=== PATIENT | female | born 1945 | race Caucasian/White ===

== ENCOUNTER 2017-06-30 04:03 | Emergency (ER) | payer OTHER ==
[2017-06-30 04:29] VITALS: BP 184/94; PULSE 73; TEMP 98.3; BMI 30.5
[2017-06-30] MEDS ORDERED: IBUPROFEN 400 MG TABLET (FP) PO ONE (04:49)
[2017-06-30] MEDS ORDERED: METHOCARBAMOL 500 MG TABLET PO ONE (04:49)
--- NOTE | 2017-06-30 04:50 | PDOC ---
History of Present Illness - General History Source: Patient Exam Limitations: No Limitations - History of Present Illness Initial Comments: The patient is a 71 yo F with a past medical history significant for HTN, HLD, CAD and DM who presents with lower back pain radiating to L groin and L knee for 1 week. Began when she danced for the first time in 4 years. She describes the pain as an intermittent pressure. She notes she took oxycodone with no relief. The patient states the pain is worsened by lying flat and mildly alleviated by heat and ice. The patient denies numbness and tingling. The patient denies fevers, chills and cough. She denies chest pain, palpitations and lightheadedness. <Enedelia Strong - Last Filed: 06/30/17 05:01> - General History Source: Patient <PranavCorby espinoza - Last Filed: 06/30/17 05:06> - General Chief Complaint: Back Pain Stated Complaint: PAIN IN GROIN AREA Time Seen by Provider: 06/30/17 04:22 Past History <Enedelia Strong - Last Filed: 06/30/17 05:01> - Past Medical History Anemia: No Asthma: No Cancer: No Cardiac Disorders: Yes (CAD) CVA: No COPD: No CHF: No Dementia: No Diabetes: Yes GI Disorders: Yes (C DIFF) Disorders: No HTN: Yes Hypercholesterolemia: Yes Liver Disease: No Seizures: No Thyroid Disease: No - Surgical History Abdominal Surgery: No Appendectomy: No Cardiac Surgery: Yes (STENT X 1 2000, angioplasty) Cholecystectomy: Yes (09/2011) Lung Surgery: No Orthopedic Surgery: No - Immunization History Immunization Up to Date: Yes - Psycho/Social/Smoking Cessation Hx Anxiety: No Suicidal Ideation: No Smoking Status: No Smoking History: Never smoked Have you smoked in the past 12 months: No Number of Cigarettes Smoked Daily: 0 If you are a former smoker, when did you quit?: 40 YRS AGO Information on smoking cessation initiated: No 'Breaking Loose' booklet given: 06/14/14 Hx Alcohol Use: No Drug/Substance Use Hx: No Substance Use Type: None Hx Substance Use Treatment: No <Corby Smith - Last Filed: 06/30/17 05:06> - Past Medical History Allergies/Adverse Reactions: Allergies Allergy/AdvReac Type Severity Reaction Status Date / Time Dcrpxfo-Gep-Lsg Reductase Allergy Verified 06/30/17 04:27 Inhibitor Home Medications: Ambulatory Orders Alprazolam [Xanax -] 0.5 mg PO Q8H PRN 05/07/13 Aspirin 81 mg PO DAILY 05/07/13 Winfield-3 Acid Ethyl Esters [Lovaza -] 2 tab PO BID 05/07/13 Ubidecarenone [Co Q-10] 200 mg PO DAILY 05/07/13 Vitamin B Complex 1 each PO DAILY 05/07/13 Vitamin E 400 unit PO DAILY 05/07/13 Ezetimibe [Zetia] 10 mg PO DAILY 02/27/14 Garlic Extract [Garlipure] 2 tab PO DAILY 02/27/14 Nebivolol HCl [Bystolic] 20 mg PO DAILY 06/14/14 Ascorbate Calcium/Bioflavonoid [Jennie-C 1,000 mg Tablet] 1 each PO DAILY Candesartan Cilexetil [Atacand -] 32 mg PO DAILY 10/22/15 Cholecalciferol (Vitamin D3) [Vitamin D] 500 unit PO DAILY 10/22/15 Glipizide [Glucotrol Xl] 10 mg PO DAILY 10/22/15 Hydrochlorothiazide [Hctz -] 25 mg PO DAILY 10/22/15 Magnesium Amino Acid Chelate [Magnesium] 100 mg PO DAILY 10/22/15 Potassium 99 mg PO DAILY 10/22/15 Oxycodone HCl/Acetaminophen [Percocet 5-325 mg Tablet] 1 tab PO Q6H PRN #60 tablet 10/23/15 Cyclosporine [Restasis] 1 each OP BID 09/05/16 Metformin HCl [Metformin HCl ER] 1,000 mg PO HS 09/05/16 Metronidazole 500 mg PO BID 09/05/16 Olopatadine HCl [Pataday] 2.5 ml OP BID 09/05/16 Timolol 0.25% [Timoptic 0.25%] 5 ml OD 09/05/16 Tobramycin Sulf/Dexamethasone [Tobradex *Eye Ointment*] 1 applic QID 09/05/16 Ibuprofen 800 mg PO TID #30 tablet 06/30/17 Methocarbamol [Robaxin -] 100 mg PO TID #90 tablet 06/30/17 Review of Systems - Review of Systems Able to Perform ROS?: Yes Comments:: CONSTITUTIONAL: Absent: fever, no chills, no fatigue EYES: Absent: visual changes ENT: Absent: ear pain, no sore throat CARDIOVASCULAR: Absent: chest pain, no palpitations RESPIRATORY: Absent: cough, no SOB GI: Absent: abdominal pain, no nausea, no vomiting, no constipation, no diarrhea GENITOURINARY: Absent: dysuria, no frequency, no hematuria MUSKULOSKELETAL: +left back, groin and hip pain SKIN: Absent: rash <Enedelia Strong - Last Filed: 06/30/17 05:01> *Physical Exam - Vital Signs Last Vital Signs Temp Pulse Resp BP Pulse Ox 98.3 F 73 18 184/94 98 06/30/17 04:27 06/30/17 04:27 06/30/17 04:27 06/30/17 04:27 06/30/17 04:27 - Physical Exam Comments: GENERAL: Well-appearing, well-nourished. No apparent distress. HEENT: Normocephalic, atraumatic. PERRL, EOM intact. CARDIOVASCULAR: Normal S1, S2. Regular rate and rhythm. PULMONARY: Clear to auscultation bilaterally. ABDOMEN: Soft, non-distended, non-tender. EXTREMITIES: Normal ROM in all four extremities. No gross deformities. tenderness to palpation lower back and si joint on L side, negative straight leg test. SKIN: Warm, dry. No rash NEUROLOGICAL: No focal neurological deficits. <Enedelia Strong - Last Filed: 06/30/17 05:01> - Vital Signs Last Vital Signs Temp Pulse Resp BP Pulse Ox 98.3 F 73 18 184/94 98 06/30/17 04:27 06/30/17 04:27 06/30/17 04:27 06/30/17 04:27 06/30/17 04:27 <Corby Smith - Last Filed: 06/30/17 05:06> Medical Decision Making - Medical Decision Making 06/30/17 05:06 Dr. Smith: The scribe's documentation has been prepared under my direction and personally reviewed by me in its entirery. I confirm that the note above accurately reflects all work, treatment, procedures, and medical decision making performed by me. <Corby Smith - Last Filed: 06/30/17 05:06> *DC/Admit/Observation/Transfer - Attestations Scribe Attestion: Documentation prepared by Enedelia Strong, acting as territory sales manager medical for Corby Smith MD/DO. <Enedelia Strong - Last Filed: 06/30/17 05:01> - Discharge Dispostion Admit: No <Corby Smith - Last Filed: 06/30/17 05:06> Diagnosis at time of Disposition: Low back pain - Discharge Dispostion Disposition: HOME Condition at time of disposition: Stable - Prescriptions Prescriptions: Ibuprofen 800 mg PO TID #30 tablet Methocarbamol [Robaxin -] 100 mg PO TID #90 tablet - Referrals Referrals: Steve Riley [Primary Care Provider] - Sushil Foster MD [Staff Physician] - - Patient Instructions Printed Discharge Instructions: DI for Low Back Pain
[2017-06-30] MEDS ORDERED: KETOROLAC TROMETHAMINE 60 MG/2 ML VIAL IM ONE (04:58)
[2017-06-30] MEDS ORDERED: KETOROLAC TROMETHAMINE 60 MG/2 ML VIAL ONE (05:24)
[2017-06-30] MEDS ORDERED: METHOCARBAMOL 500 MG TABLET ONE (05:24)
== END 2017-06-30 05:43 | disposition home or self-care (01) ==
LOC: JER 04:03
PROC: 3E0133Z Introduction of Anti-inflammatory into Subcutaneous Tissue, Percutaneous Approach (ICD-10-PCS; principal; 2017-06-30)
DX: M54.5 Low back pain (principal); I10 Essential (primary) hypertension; I25.10 Atherosclerotic heart disease of native coronary artery without angina pectoris; E78.5 Hyperlipidemia, unspecified; E11.9 Type 2 diabetes mellitus without complications; Z95.5 Presence of coronary angioplasty implant and graft; Z88.8 Allergy status to other drugs, medicaments and biological substances; Z79.82 Long term (current) use of aspirin; Z79.84 Long term (current) use of oral hypoglycemic drugs
CPT/HCPCS: 99282-25

== ENCOUNTER 2017-11-02 03:05 | Inpatient (IN) | payer OTHER ==
--- NOTE | 2017-11-02 03:33 | PDOC ---
Attending Attestation - HPI HPI: 11/02/17 03:33 The patient is a 72 year old female, with a significant past medical history of HTN, hypercholesterolemia, diabetes, CAD, acid reflux, chronic lower back pain, and arthritis, who presents to the emergency department with sudden onset of substernal chest pain radiating to the left collar bone while awake and resting. She states the pain started as 5/10, however, increased to 10/10. She reports similar episodes twice in the past 2 weeks which she drank water, took a baby aspirin, and took xanax with significant relief of her pain at the time. She reportedly did the same today, but denies improvement of her pain. She states taking deep breaths and holding her breath alleviates her chest pain. As per ems, the patients BP was 200/176 which dropped to 161/?? after being given a sublingual nitro in route. EMS also reportedly gave three 81 mg aspirins in route. The patient states she has an appointment on 11/06/17, with her PCP. She denies shortness of breath, headache and dizziness. She denies fever, chills , nausea, vomit, diarrhea and constipation. She denies dysuria, frequency, urgency and hematuria. Allergies: Sgzanjy-Oox-Svy Reductase Inhibitor Social History: Former smoker (quit ~20 years ago; 1 pack/day). PCP: Dr.Oliver Osvaldo Damon [phone] - Medical Decision Making 11/02/17 03:34 Documentation prepared by Ximena Diaz, acting as medical records auditor for Corby Smith DO <Ximena Diaz - Last Filed: 11/02/17 03:33> - Resident Resident Name: Lorenza Junior - ED Attending Attestation I have performed the following: I have examined & evaluated the patient, The case was reviewed & discussed with the resident, I agree w/resident's findings & plan, Exceptions are as noted - HPI HPI: 11/02/17 05:40 Physical Exam General Appearance: Yes: Appropriately Dressed. No: Apparent Distress, Intoxicated HEENT: positive: EOMI, DELISA, Normal ENT Inspection, Normal Voice, TMs Normal, Pharynx Normal. negative: Pale Conjunctivae, Photophobia, Scleral Icterus (R), Scleral Icterus (L) Neck: positive: Trachea midline, Normal Thyroid, Supple. negative: Tender, Rigid, Carotid bruit, Stridor, Lymphadenopathy (R), Lymphadenopathy (L), Thyromegaly Respiratory/Chest: positive: Lungs Clear, Normal Breath Sounds. negative: Chest Tender, Respiratory Distress, Accessory Muscle Use, Labored Respiration, RES, Crackles, Rales, Rhonchi, Stridor, Wheezing, Dullness Cardiovascular: positive: Regular Rhythm, Regular Rate, S1, S2. negative: Edema , JVD, Murmur, Bradycardia, Tachycardia Vascular Pulses: Dorsalis-Pedis (R): 2+, Doralis-Pedis (L): 2+ Gastrointestinal/Abdominal: positive: Normal Bowel Sounds, Flat, Soft. negative : Tender, Organomegaly, Pulsatile Mass, Increased Bowel Sounds, Decreased BS, Distended, Guarding, Rebound, Hernia, Hepatomegaly, Spleenomegaly Lymphatic: negative: Adenopathy, Tenderness Musculoskeletal: positive: Normal Inspection. negative: CVA Tenderness, Decreased Range of Motion Extremity: positive: Normal Capillary Refill, Normal Inspection, Normal Range of Motion, Pelvis Stable. negative: Tender, Pedal Edema, Swelling, Erythema Integumentary: positive: Normal Color, Dry, Warm. negative: Cyanotic, Erythema , Jaundice, Rash Neurologic: positive: cold roll inspector II-XII NML intact, Fully Oriented, Alert, Normal Mood/ Affect, Motor Strength 5/5. negative: EOM Palsy, Facial Droop, Sensory Deficit - Physicial Exam PE: 11/02/17 19:39 *Physical Exam General Appearance: Yes: Appropriately Dressed. No: Apparent Distress, Intoxicated HEENT: positive: EOMI, DELISA, Normal ENT Inspection, Normal Voice, TMs Normal, Pharynx Normal. negative: Pale Conjunctivae, Photophobia, Scleral Icterus (R), Scleral Icterus (L) Neck: positive: Trachea midline, Normal Thyroid, Supple. negative: Tender, Rigid, Carotid bruit, Stridor, Lymphadenopathy (R), Lymphadenopathy (L), Thyromegaly Respiratory/Chest: positive: Lungs Clear, Normal Breath Sounds. negative: Chest Tender, Respiratory Distress, Accessory Muscle Use, Labored Respiration, RES, Crackles, Rales, Rhonchi, Stridor, Wheezing, Dullness Cardiovascular: positive: Regular Rhythm, Regular Rate, S1, S2. negative: Edema , JVD, Murmur, Bradycardia, Tachycardia Vascular Pulses: Dorsalis-Pedis (R): 2+, Doralis-Pedis (L): 2+ Gastrointestinal/Abdominal: positive: Normal Bowel Sounds, Flat, Soft. negative : Tender, Organomegaly, Pulsatile Mass, Increased Bowel Sounds, Decreased BS, Distended, Guarding, Rebound, Hernia, Hepatomegaly, Spleenomegaly Lymphatic: negative: Adenopathy, Tenderness Musculoskeletal: positive: Normal Inspection. negative: CVA Tenderness, Decreased Range of Motion Extremity: positive: Normal Capillary Refill, Normal Inspection, Normal Range of Motion, Pelvis Stable. negative: Tender, Pedal Edema, Swelling, Erythema Integumentary: positive: Normal Color, Dry, Warm. negative: Cyanotic, Erythema , Jaundice, Rash Neurologic: positive: cold roll inspector II-XII NML intact, Fully Oriented, Alert, Normal Mood/ Affect, Motor Strength 5/5. negative: EOM Palsy, Facial Droop, Sensory Deficit - Medical Decision Making 11/02/17 05:41 Pt admitted to [facility] for for further evaluation <Corby Smith - Last Filed: 11/02/17 19:40> Heart Score/ECG Review - ECG Intrepretation Comment:: 11/02/17 03:34 EKG was read by Dr. Smith at 03:09 Impression: normal sinus rhythm with sinus arrhythmia. Septal infarct, age undetermined. Vent Rate: 66 bpm [place] Interval: 154 ms QTc: 419 ms Documentation prepared by Ximena Diaz, acting as medical records auditor for Corby Smith DO <Ximena Diaz - Last Filed: 11/02/17 03:33>
--- NOTE | 2017-11-02 03:35 | PDOC ---
History of Present Illness - General Stated Complaint: CHEST PAIN Time Seen by Provider: 11/02/17 03:14 History Source: Patient - History of Present Illness Initial Comments: 11/02/17 03:46 72yo woman with PMH of CAD (s/p 1 stent, 2000), HTN, IDDM, and anxiety who presents with substernal chest pain radiating to both clavicles that started at approximately 1:50am. She was at rest when the pain started, which was pressure like in quality, 10/10 at its peak, now 5/10 in severity. She reports having two similar episodes in the past weeks, which both subsided within 20minutes after taking a Xanax and drinking some water. For this episode she also took a Xanax, but when the pain did not subside she took a ASA 81mg and called EMS. EMS on arrival found her to be hypertensive to 200/176 and gave her an additional 3x ASA 81 and 1x dose SL nitroglycerin. 11/02/17 07:17 Past History - Past Medical History Allergies/Adverse Reactions: Allergies Allergy/AdvReac Type Severity Reaction Status Date / Time Yvrmyfn-Wpd-Jdl Reductase Allergy Verified 11/02/17 03:23 Inhibitor Home Medications: Ambulatory Orders Alprazolam [Xanax -] 0.5 mg PO Q8H PRN 05/07/13 Aspirin 81 mg PO DAILY 05/07/13 Ubidecarenone [Co Q-10] 200 mg PO DAILY 05/07/13 Vitamin B Complex 1 each PO DAILY 05/07/13 Vitamin E 400 unit PO DAILY 05/07/13 Cholecalciferol (Vitamin D3) [Vitamin D] 500 unit PO DAILY 10/22/15 Hydrochlorothiazide [Hctz -] 12.5 mg PO DAILY 10/22/15 Potassium 99 mg PO DAILY 10/22/15 Cyclosporine [Restasis] 1 each OP BID 09/05/16 Olopatadine HCl [Pataday] 2.5 ml OP BID 09/05/16 Timolol 0.25% [Timoptic 0.25%] 5 ml OD DAILY 09/05/16 Candesartan Cilexetil [Atacand -] 32 mg PO DAILY 11/02/17 Insulin Glargine,Hum.rec.anlog [Lantus (nf)] 0 units SQ HS 11/02/17 Anemia: No Asthma: No Cancer: No Cardiac Disorders: Yes (CAD) CVA: No COPD: No CHF: No Dementia: No Diabetes: Yes GI Disorders: Yes (C DIFF) Disorders: No HTN: Yes Hypercholesterolemia: Yes Liver Disease: No Seizures: No Thyroid Disease: No - Surgical History Abdominal Surgery: No Appendectomy: No Cardiac Surgery: Yes (STENT X 1 2000, angioplasty) Cholecystectomy: Yes (09/2011) Lung Surgery: No Orthopedic Surgery: No - Immunization History Immunization Up to Date: Yes - Suicide/Smoking/Psychosocial Hx Smoking Status: No Smoking History: Never smoked Have you smoked in the past 12 months: No Number of Cigarettes Smoked Daily: 0 If you are a former smoker, when did you quit?: 40 YRS AGO 'Breaking Loose' booklet given: 06/14/14 Hx Alcohol Use: No Drug/Substance Use Hx: No Substance Use Type: None Hx Substance Use Treatment: No Review of Systems - Review of Systems Constitutional: Yes: Diaphoresis Respiratory: Yes: Other (2 lung nodules identified on CT) ABD/GI: Yes: Diarrhea Endocrine: Yes: Other (thyroid nodules found on CT) *Physical Exam - Physical Exam General Appearance: Yes: Nourished, Appropriately Dressed HEENT: positive: Normal ENT Inspection Neck: positive: Supple. negative: Thyromegaly Respiratory/Chest: positive: Chest Tender, Lungs Clear, Normal Breath Sounds Cardiovascular: positive: Regular Rhythm, Regular Rate, S1, S2 Gastrointestinal/Abdominal: positive: Normal Bowel Sounds, Soft, Protuberent. negative: Distended, Guarding Extremity: positive: Normal Inspection. negative: Pedal Edema Neurologic: positive: Fully Oriented, Alert, Normal Mood/Affect ED Treatment Course - LABORATORY CBC & Chemistry Diagram: 11/02/17 03:45 11/02/17 03:50 Medical Decision Making - Medical Decision Making 11/02/17 04:08 72yo woman with PMH of CAD (1x stent), HTN, IDDM, and anxiety who presents with substernal chest pain radiating to her clavicles. Will do work-up to r/o ACS. -CMP, CBC, BNP, Troponin -EKG -CXR 11/02/17 07:19 Troponin is elevated 0.25. Will initiate admission from Hospitalists. *DC/Admit/Observation/Transfer Diagnosis at time of Disposition: Elevated troponin - Discharge Dispostion Condition at time of disposition: Stable Admit: Yes - Referrals - Patient Instructions - Post Discharge Activity
[2017-11-02 04:05] LABS: BASOPHIL 0.6 % (0-2.0); EOSINOPHIL 1.3 % (0-4.5); MCH 31.3 pg (25.7-33.7); MCHC 33.3 g/dl (32.0-36.0); NEUTROPHILS 62.4 % (42.8-82.8); PLATELET COUNT 201 K/MM3 (134-434); WHITE BLOOD COUNT 11.2 K/mm3 (4.0-10.0)
[2017-11-02 04:27] LABS: ALBUMIN 3.3 g/dl (3.4-5.0); ANION GAP 11 (8-16); BILIRUBIN,TOTAL 0.4 mg/dL (0.2-1.0); CALCIUM 8.8 mg/dL (8.5-10.1); CO2 28 mmol/L (21-32); CREATININE 0.8 mg/dL (0.55-1.02); GLUCOSE,RANDOM 125 mg/dL (74-106); SGOT/AST 24 U/L (15-37); SGPT/ALT 29 U/L (12-78); TOT PROT 6.9 g/dl (6.4-8.2)
[2017-11-02 04:30] LABS: ALK PHOS 90 U/L (45-117); TROPONIN I 0.25 ng/ml (0.00-0.05)
[2017-11-02] MEDS ORDERED: morphine SULFATE 4 MG/ML VIAL IVPUSH PRN (04:50)
[2017-11-02 04:53] VITALS: BMI 28.0
[2017-11-02] MEDS ORDERED: ALPRAZolam 0.25 MG TABLET PO PRN (04:57)
[2017-11-02] MEDS ORDERED: HEPARIN NA (PORCINE) 5,000 UNITS/ML 1ML VIAL IVPUSH PRN ×2 (05:51)
[2017-11-02] MEDS ORDERED: HEPARIN - 25,000 UNIT in SODIUM CHLORIDE 495 ML IV SCH (06:00)
[2017-11-02] MEDS ORDERED: HEPARIN NA (PORCINE) 5,000 UNITS/ML 1ML VIAL SQ SCH (06:00)
--- NOTE | 2017-11-02 06:00 | HP ---
<Ady Petersen - Last Filed: 11/02/17 05:33> CHIEF COMPLAINT: Chest Pain PCP: Unknown HISTORY OF PRESENT ILLNESS: 72 yo F with pmh of CAD (S/p 1 stent placed in 2000), HTN, NIDDM, and anxiety presents with substernal chest pain that began at 0145 this morning. Patient states she was at rest in bed when she began having 10/10, pressure like pain radiating to her neck and clavicles. Pain lasted for 3 hours until she came to the ED. Patient endorses nausea, diarrhea, diaphoresis, and burning epigastric pain. Patient reports 2 prior episodes in the past few weeks similar to this one but those resolved after deep breathing and xanax. ER course was notable for: (1) BP- 200/176, Trop 0.25, BNP-870 (2) 3 asa 81 mg, 1 SL nitro, EKG- NSR, St depressions in V4-V6. qtc 419 (3) CXR- unremarkable Recent Travel: denies PAST MEDICAL HISTORY: as per hpi PAST SURGICAL HISTORY: cardiac angio Social History: Smoking: denies Alcohol: denies Drugs: denies Family History: Allergies Rfzadex-Kia-Tve Reductase Inhibitor Allergy (Verified 11/02/17 03:23) "SEVERE MUSCLE WEAKNESS" HOME MEDICATIONS: Home Medications Medication Instructions Recorded Alprazolam [Xanax -] 0.5 mg PO Q8H PRN 05/07/13 Aspirin 81 mg PO DAILY 05/07/13 Ubidecarenone [Co Q-10] 200 mg PO DAILY 05/07/13 Vitamin B Complex 1 each PO DAILY 05/07/13 Vitamin E 400 unit PO DAILY 05/07/13 Cholecalciferol (Vitamin D3) 500 unit PO DAILY 10/22/15 [Vitamin D] Hydrochlorothiazide [Hctz -] 12.5 mg PO DAILY 10/22/15 Potassium 99 mg PO DAILY 10/22/15 Cyclosporine [Restasis] 1 each OP BID 09/05/16 Olopatadine HCl [Pataday] 2.5 ml OP BID 09/05/16 Timolol 0.25% [Timoptic 0.25%] 5 ml OD DAILY 09/05/16 Candesartan Cilexetil [Atacand -] 32 mg PO DAILY 11/02/17 Insulin Glargine,Hum.rec.anlog 0 units SQ HS 12/14/17 [Lantus (nf)] REVIEW OF SYSTEMS CONSTITUTIONAL: Absent: fever, chills, diaphoresis, generalized weakness, malaise, loss of appetite, weight change HEENT: Absent: rhinorrhea, nasal congestion, throat pain, throat swelling, difficulty swallowing, mouth swelling, ear pain, eye pain, visual changes CARDIOVASCULAR: Absent: chest pain, syncope, palpitations, irregular heart rate, lightheadedness , peripheral edema RESPIRATORY: Absent: cough, shortness of breath, dyspnea with exertion, orthopnea, wheezing, stridor, hemoptysis GASTROINTESTINAL: Absent: abdominal pain, abdominal distension, nausea, vomiting, diarrhea, constipation, melena, hematochezia GENITOURINARY: Absent: dysuria, frequency, urgency, hesitancy, hematuria, flank pain, genital pain MUSCULOSKELETAL: Absent: myalgia, arthralgia, joint swelling, back pain, neck pain SKIN: Absent: rash, itching, pallor HEMATOLOGIC/IMMUNOLOGIC: Absent: easy bleeding, easy bruising, lymphadenopathy, frequent infections ENDOCRINE: Absent: unexplained weight gain, unexplained weight loss, heat intolerance, cold intolerance NEUROLOGIC: Absent: headache, focal weakness or paresthesias, dizziness, unsteady gait, seizure, mental status changes, bladder or bowel incontinence PSYCHIATRIC: Absent: anxiety, depression, suicidal or homicidal ideation, hallucinations. PHYSICAL EXAMINATION Vital Signs - 24 hr 11/02/17 11/02/17 03:23 03:52 Temperature 97.6 F Pulse Rate 76 Respiratory 20 Rate Blood Pressure 161/76 O2 Sat by Pulse 99 96 Oximetry (%) GENERAL: Awake, alert, and fully oriented, in no acute distress. HEAD: Normal with no signs of trauma. EYES: Extraocular movements intact, sclera anicteric, conjunctiva clear. No lid lag. EARS, NOSE, THROAT: Oropharynx clear without exudates. Moist mucous membranes. NECK: Normal range of motion, supple without lymphadenopathy, JVD, or masses. LUNGS: Breath sounds equal, clear to auscultation bilaterally. No wheezes, and no crackles. No accessory muscle use. HEART: Regular rate and rhythm, normal S1 and S2 without murmur, rub or gallop. ABDOMEN: Soft, +mild epigastric tenderness, not distended, normoactive bowel sounds, no guarding, no rebound, no masses. No hepatomegaly or splenomegaly. MUSCULOSKELETAL: Normal range of motion at all joints. No bony deformities or tenderness. No CVA tenderness. UPPER EXTREMITIES: 2+ pulses, warm, well-perfused. No cyanosis. No clubbing. No peripheral edema. LOWER EXTREMITIES: 2+ pulses, warm, well-perfused. No calf tenderness. No peripheral edema. NEUROLOGICAL: Cranial nerves II-XII intact. Normal speech. PSYCHIATRIC: Cooperative. Good eye contact. Appropriate mood and affect. SKIN: Warm, dry, normal turgor, no rashes or lesions noted, normal capillary refill. Laboratory Results - last 24 hr 11/02/17 11/02/17 11/02/17 03:45 03:50 03:50 WBC 11.2 H RBC 4.43 Hgb 13.9 Hct 41.7 MCV 94.0 MCH 31.3 MCHC 33.3 RDW 13.0 Plt Count 201 MPV 10.0 Neutrophils % 62.4 Lymphocytes % 28.1 D Monocytes % 7.6 Eosinophils % 1.3 Basophils % 0.6 Sodium 140 Potassium 4.3 Chloride 101 Carbon Dioxide 28 Anion Gap 11 BUN 28 H D Creatinine 0.8 Creat Clearance w eGFR > 60 Random Glucose 125 H D Calcium 8.8 Total Bilirubin 0.4 D AST 24 D ALT 29 D Alkaline Phosphatase 90 Troponin I 0.25 H B-Natriuretic Peptide 870.71 H Total Protein 6.9 Albumin 3.3 L D ASSESSMENT/PLAN: 72 yo F with pmh of CAD (S/p 1 stent placed in 2000), HTN, NIDDM, and anxiety presents with substernal chest pain admitted for NSTEMI #NSTEMI -Lipitor held 2/2 to allergy. -Aspirin 81 mg daily -EKG in the AM -Echo pending -Cardiology consulted, Dr. Beth -Lipid profile pending -A1c pending -Heparin drip started #HTN -Continue Candesartan 32 mg po daily -Continue HCTZ 12.5 mg po daily #NIDDM -BGM achs -ISS achs -Patient on long acting 100 units at home. Not started. Monitor sugars over day. #CAD -Continue aspirin 81 mg po daily #Anxiety -Continue Xanax 0.5mg q8h prn #FEN/GI -No fluids -wnl -Sodium/diabeic diet #PPx -Heparin drip started -GI ppx not indicated Case discussed with team Visit type - Emergency Visit Emergency Visit: Yes Care time: The patient presented to the Emergency Department on the above date and was hospitalized for further evaluation of their emergent condition. - New Patient This patient is new to me today: Yes Date on this admission: 11/02/17 - Critical Care Critical Care patient: No <Karuna Sauceda - Last Filed: 11/02/17 06:24> Patient is seen and examined Agree with plan above 72 year old female with coronary artery disease that presents to the emergency department complaining of chest pain that occured around 1:30 AM . Associated with diaphoresis . This was associated with elevated BP that resolved after denis of PO meds given my EMS Vital Signs Temperature 97.6 F 11/02/17 03:23 Pulse Rate 76 11/02/17 03:23 Respiratory Rate 20 11/02/17 03:23 Blood Pressure 161/76 11/02/17 03:23 O2 Sat by Pulse Oximetry (%) 96 11/02/17 03:52 OTTO: Normal range of motion, supple without lymphadenopathy, JVD, or masses. LUNGS: Breath sounds equal, clear to auscultation bilaterally. No wheezes, and no crackles. No accessory muscle use. HEART: Regular rate and rhythm, normal S1 and S2 without murmur, rub or gallop. ABDOMEN: Soft, +mild epigastric tenderness CBC, BMP 11/02/17 03:45 11/02/17 03:50 Abnormal Lab Results 11/02/17 11/02/17 11/02/17 03:45 03:50 03:50 WBC 11.2 H BUN 28 H D Random Glucose 125 H D Troponin I 0.25 H B-Natriuretic Peptide 870.71 H Albumin 3.3 L D EKG - ST depr in v4-6 1. NSTEMI - - telemetry - heparin drip / PTT per protocol - troponin - echo - cardiology evaluation - asa 2. HTN emergency - resolved 3. DM - reports using 100 units of Lantus at home - HB A1C - sliding scale - Lantus in PM
[2017-11-02] MEDS ORDERED: INSULIN SLIDING SCALE (NOVOLOG) 1 VIAL SQ SCH (07:00)
[2017-11-02 07:13] LABS: BASOPHIL 0.5 % (0-2.0); EOSINOPHIL 0.6 % (0-4.5); MCH 31.3 pg (25.7-33.7); MCHC 33.6 g/dl (32.0-36.0); MEAN CELL VOLUME 93.2 fl (80-96); MEAN PLT VOLUME 9.8 fl (7.5-11.1); NEUTROPHILS 65.3 % (42.8-82.8); PLATELET COUNT 216 K/MM3 (134-434); RDW 12.8 % (11.6-15.6); WHITE BLOOD COUNT 12.3 K/mm3 (4.0-10.0)
[2017-11-02 07:33] LABS: ANION GAP 10 (8-16); CALCIUM 8.7 mg/dL (8.5-10.1); CO2 27 mmol/L (21-32); CREATININE 0.7 mg/dL (0.55-1.02); GLUCOSE,RANDOM 103 mg/dL (74-106); MAGNESIUM 2.2 mg/dL (1.8-2.4); PHOSPHOROUS 4.6 mg/dL (2.5-4.9)
[2017-11-02 07:37] LABS: CHOLESTEROL 313 mg/dL (50-200)
[2017-11-02] MEDS ORDERED: HEPARIN INFUSION - 25,000 UNITS/500 ML INFUS.BAG IVPB ONE (07:46)
[2017-11-02] MEDS ORDERED: HEPARIN NA (PORCINE) 5,000 UNITS/ML 1ML VIAL ONE (07:46)
[2017-11-02 07:48] LABS: INR 1.02 (0.82-1.09); PROTHROMBIN TIME (PATIENT) 11.5 SEC (9.98-11.88)
[2017-11-02 07:51] LABS: ACTIVATED PTT 27.2 SECONDS (26.9-34.4)
[2017-11-02] MEDS ORDERED: CLOPIDOGREL BISULFATE 300 MG TABLET PO ONE (08:18)
[2017-11-02 08:54] VITALS: TEMP 98.3
[2017-11-02] MEDS ORDERED: TIMOLOL 0.25% OPHTHALMIC SOL 5 ML BOTTLE OD SCH (10:00)
[2017-11-02] MEDS ORDERED: PATIENT'S OWN MEDICATION (NON-FORMULARY) (Cyclosporine [Restasis] 1 EACH) OP SCH (10:00)
[2017-11-02] MEDS ORDERED: PATIENT'S OWN MEDICATION (NON-FORMULARY) (Olopatadine Hcl [Pataday] 2.5 ML) OP SCH (10:00)
[2017-11-02] MEDS ORDERED: ASPIRIN 81 MG CHEWABLE TABLETS PO SCH (10:00)
[2017-11-02] MEDS ORDERED: VALSARTAN 160 MG TABLET (UD) PO SCH (10:00)
[2017-11-02] MEDS ORDERED: HYDROCHLOROTHIAZIDE 12.5 MG CAPSULE (FP) PO SCH (10:00)
[2017-11-02] MEDS ORDERED: ASPIRIN COATED 81 MG TABLET.EC PO SCH (10:00)
--- NOTE | 2017-11-02 11:33 | EKG ---
Test Reason : Blood Pressure : / mmHG Vent. Rate : 066 BPM Atrial Rate : 066 BPM P-R Int : 154 ms QRS Dur : 080 ms QT Int : 400 ms P-R-T Axes : 053 014 086 degrees QTc Int : 419 ms NORMAL SINUS RHYTHM WITH SINUS ARRHYTHMIA SEPTAL INFARCT (CITED ON OR BEFORE 07-MAY-2013) ABNORMAL ECG WHEN COMPARED WITH ECG OF 10-SEP-2016 10:09, PREMATURE SUPRAVENTRICULAR COMPLEXES ARE NO LONGER PRESENT QUESTIONABLE CHANGE IN INITIAL FORCES OF ANTEROSEPTAL LEADS ST NOW DEPRESSED IN INFERIOR LEADS ST NOW DEPRESSED IN LATERAL LEADS Confirmed by ANICETO FERGUSON MD ([id number]) on 11/02/2017 11:32:53 AM Referred By: Confirmed By:ANICETO FERGUSON MD
--- NOTE | 2017-11-02 11:33 | EKG ---
Test Reason : Blood Pressure : / mmHG Vent. Rate : 068 BPM Atrial Rate : 068 BPM P-R Int : 154 ms QRS Dur : 078 ms QT Int : 426 ms P-R-T Axes : 045 015 083 degrees QTc Int : 452 ms NORMAL SINUS RHYTHM NORMAL ECG WHEN COMPARED WITH ECG OF 02-NOV-2017 03:09, ST NO LONGER DEPRESSED IN INFERIOR LEADS ST NO LONGER DEPRESSED IN LATERAL LEADS T WAVE INVERSION NOW EVIDENT IN ANTERIOR LEADS Confirmed by ANICETO FERGUSON MD ([id number]) on 11/02/2017 11:33:25 AM Referred By: Confirmed By:ANICETO FERGUSON MD
[2017-11-02] MEDS ORDERED: INSULIN DETEMIR 100 UNITS/ML MDV SQ SCH ×3 (11:59→22:00)
[2017-11-02] MEDS ORDERED: CLOPIDOGREL BISULFATE 300 MG TABLET ONE (12:47)
--- NOTE | 2017-11-02 13:03 | CON.CARD ---
Consult Consult Specialty:: cardiology Referred by:: Sohail Beckman Reason for Consultation:: Myocardial infarction - History of Present Illness Chief Complaint: Chest pain History of Present Illness: The patient is a 72-year-old obese female, we have a history of diabetes, hypertension, hyperlipidemia, coronary artery disease, status post stent to the proximal LAD 14 years ago, now presenting with acute CVA or retrosternal chest pains radiating to her neck. There ECG is consistent with an acute ST elevation myocardial infarction. The patient had chest pains for approximately 2 hours. They resolved with nitroglycerin and oxygen given by EMS. She is currently comfortable and symptom free. - History Source History Provided By: Patient Limitations to Obtaining History: No Limitations - Past Medical History Cardio/Vascular: Yes: CAD, Hyperlipdemia Gastrointestinal: Yes: GERD Endocrine: Yes: Diabetes Mellitus - Alcohol/Substance Use Hx Alcohol Use: No - Smoking History Smoking history: Never smoked Have you smoked in the past 12 months: No Aproximately how many cigarettes per day: 0 If you are a former smoker, when did you quit?: 40 YRS AGO Home Medications - Allergies Allergies/Adverse Reactions: Allergies Allergy/AdvReac Type Severity Reaction Status Date / Time Bvqlvwi-Enm-Ajw Reductase Allergy Verified 11/02/17 03:23 Inhibitor - Home Medications Home Medications: Ambulatory Orders Alprazolam [Xanax -] 0.5 mg PO Q8H PRN 05/07/13 Aspirin 81 mg PO DAILY 05/07/13 Ubidecarenone [Co Q-10] 200 mg PO DAILY 05/07/13 Vitamin B Complex 1 each PO DAILY 05/07/13 Vitamin E 400 unit PO DAILY 05/07/13 Cholecalciferol (Vitamin D3) [Vitamin D] 500 unit PO DAILY 10/22/15 Hydrochlorothiazide [Hctz -] 12.5 mg PO DAILY 10/22/15 Potassium 99 mg PO DAILY 10/22/15 Cyclosporine [Restasis] 1 each OP BID 09/05/16 Olopatadine HCl [Pataday] 2.5 ml OP BID 09/05/16 Timolol 0.25% [Timoptic 0.25%] 5 ml OD DAILY 09/05/16 Candesartan Cilexetil [Atacand -] 32 mg PO DAILY 11/02/17 Insulin Glargine,Hum.rec.anlog [Lantus (nf)] 0 units SQ HS 11/02/17 Review of Systems - Review of Systems Constitutional: reports: No Symptoms Eyes: reports: No Symptoms HENT: reports: No Symptoms Neck: reports: Tenderness Cardiovascular: reports: Chest Pain, Shortness of Breath Respiratory: reports: SOB on Exertion Gastrointestinal: reports: No Symptoms Genitourinary: reports: No Symptoms Musculoskeletal: reports: No Symptoms Integumentary: reports: No Symptoms Neurological: reports: No Symptoms Endocrine: reports: No Symptoms Hematology/Lymphatic: reports: No Symptoms Psychiatric: reports: No Symptoms Vital Signs: Vital Signs Temperature 98.3 F 11/02/17 08:00 Pulse Rate 73 11/02/17 08:00 Respiratory Rate 18 11/02/17 08:00 Blood Pressure 134/72 11/02/17 08:00 O2 Sat by Pulse Oximetry (%) 96 11/02/17 03:52 Constitutional: Yes: Anxious, Obese Eyes: Yes: WNL, Conjunctiva Clear HENT: Yes: Normocephalic Neck: Yes: WNL, Supple, Trachea Midline Respiratory: Yes: WNL, Regular, CTA Bilaterally Gastrointestinal: Yes: WNL, Normal Bowel Sounds, Soft Renal/: Yes: WNL Cardiovascular: Yes: WNL, Regular Rate and Rhythm JVD: No Carotid Bruit: No PMI: Non-Displaced Heart Sounds: Yes: S1, S2 Murmur: Yes: Systolic Murmur, Grade 2 Musculoskeletal: Yes: WNL Extremities: Yes: WNL Edema: No Peripheral Pulses WNL: Yes Peripheral Pulses: 2+ Left Carotid, 2+ Right Carotid, 2+ Left Femoral, 2+ Right Femoral, 2+ Left Popliteal, 2+ Right Popliteal, 2+ Left Doralis Pedis, 2+ Right Dorsalis Pedis Integumentary: Yes: WNL Neurological: Yes: WNL, Alert, Oriented ...Motor Strength: WNL Psychiatric: Yes: WNL - Other Data Labs, Other Data: CBC, BMP 11/02/17 06:30 11/02/17 06:30 INR, PTT INR 1.02 (0.82-1.09) 11/02/17 07:20 Troponin, BNP 11/02/17 11/02/17 11/02/17 03:50 03:50 11:25 Troponin I 0.25 H 3.72 H* B-Natriuretic Peptide 870.71 H Troponin, BNP 11/02/17 11/02/17 11/02/17 03:50 03:50 11:25 Troponin I 0.25 H 3.72 H* B-Natriuretic Peptide 870.71 H Assessment/Plan 72-year-old female, with is morbidly obese, with known coronary artery disease and an old stent to the proximal LAD, now presenting with acute severe chest pains at rest. The patient ruled in for a STEMI. The ECG indicates LAD territory. There is mild pulmonary congestion. The patient is overall quite comfortable. Chest pains resolved. There is mild pulmonary congestion. Please load with Plavix. Start aspirin. Metoprolol 50 mg by mouth twice daily. Continue heparin drip for the time being. I arranged for direct transferred to [facility]'s cardiac catheterization lab. The patient is stable and symptom-free.
[2017-11-02 13:23] VITALS: BP 164/60; PULSE 77
--- NOTE | 2017-11-02 16:38 | PN ---
Teaching Attending Note Name of Resident: Giuseppe Kamara ATTENDING PHYSICIAN STATEMENT I saw and evaluated the patient. I reviewed the resident's note and discussed the case with the resident. I agree with the resident's findings and plan as documented. pt was evaluated at 1120 SUBJECTIVE:c/o dull chest pain radiating from left to right side of chest. starting at rest. not as severe on initial presentation. denies SOB, fever, chills, N/V/C/D had treadmill stress test earlier this year which she reports she was able to achieve 80% maximum HR and was negative. last cardiac cath was 2011 when a stent was placed and was on plavix for only 2 weeks OBJECTIVE: Last Vital Signs Temp Pulse Resp BP Pulse Ox 98.3 F 77 18 164/60 98 11/02/17 11:45 11/02/17 11:45 11/02/17 11:45 11/02/17 11:45 11/02/17 08:00 General anxious CV S1 S2 RRR no murmur/rub/gallop no chest wall tenderness Lungs CTA B/L no wheezing/rales/rhonchi Abdomen soft NT/ND obese Extremities trace pitting edema ASSESSMENT AND PLAN: 72yo F with PMH CAD s/p stent, DM, obesity, HTN, dyslipidemia presented to the ER with CP 1. STEMI- troponin trending up 0.25 to 3.25. started on asa/heparin ggt. will give plavix load. awaiting evaluation by cardiology will likely require to be transferred out for cardiac cath. 2. DM- controlled here. states she takes levemir 100 units AM. agreed will give 50 units at this time. gave reassurance that her sugars will not "cj rocket". iss, bgm 3. obesity- reports 40 lb weight loss this year. 4. Hypercholesterolemia- does not tolerate statin due to severe myalgia. states she is trying natural ways to reduce her cholesterol. she started in the last month 5. HTN- above goal. likely due to anxiety. reassurance. 6. DVT ppx- hep ggt
--- NOTE | 2017-11-02 19:00 | DS ---
Physical Exam: SUBJECTIVE: Patient seen and examined at bedside. Patient states that her chest pain and diaphoresis have resolved. She states that she has some soreness on the right side of her chest mid-axillary area. Denies shortness of breath, nausea, vomiting, fevers, chills. OBJECTIVE: Vital Signs Period Temp Pulse Resp BP Sys/Harvey Pulse Ox Last 24 Hr 97.6 F-98.3 F 73-77 18-20 134-164/60-76 96-99 PHYSICAL EXAM GENERAL: The patient is awake, alert, and fully oriented, in no acute distress. HEAD: Normal with no signs of trauma. EYES: PERRL, extraocular movements intact, sclera anicteric, conjunctiva clear. ENT: Ears normal, nares patent, oropharynx clear without exudates, moist mucous membranes. NECK: Trachea midline, full range of motion, supple. LUNGS: Breath sounds equal, clear to auscultation bilaterally, no wheezes, no crackles, no accessory muscle use. HEART: Regular rate and rhythm, S1, S2 without murmur, rub or gallop. ABDOMEN: Soft, nontender, nondistended, normoactive bowel sounds, no guarding, no rebound, no hepatosplenomegaly, no masses. EXTREMITIES: 2+ pulses, warm, well-perfused, no edema. NEUROLOGICAL: Cranial nerves II through XII grossly intact. Normal speech, gait not observed. PSYCH: Normal mood, normal affect. SKIN: Warm, dry, normal turgor, no rashes or lesions noted. LABS Laboratory Results - last 24 hr 11/02/17 11/02/17 11/02/17 03:45 03:50 03:50 WBC 11.2 H RBC 4.43 Hgb 13.9 Hct 41.7 MCV 94.0 MCH 31.3 MCHC 33.3 RDW 13.0 Plt Count 201 MPV 10.0 Neutrophils % 62.4 Lymphocytes % 28.1 D Monocytes % 7.6 Eosinophils % 1.3 Basophils % 0.6 PT with INR INR PTT (Actin FS) Sodium 140 Potassium 4.3 Chloride 101 Carbon Dioxide 28 Anion Gap 11 BUN 28 H D Creatinine 0.8 Creat Clearance w eGFR > 60 Random Glucose 125 H D Hemoglobin A1c % Calcium 8.8 Phosphorus Magnesium Total Bilirubin 0.4 D AST 24 D ALT 29 D Alkaline Phosphatase 90 Troponin I 0.25 H B-Natriuretic Peptide 870.71 H Total Protein 6.9 Albumin 3.3 L D Triglycerides Cholesterol Total LDL Cholesterol HDL Cholesterol 11/02/17 11/02/17 11/02/17 06:30 06:30 06:30 WBC 12.3 H RBC 4.60 Hgb 14.4 Hct 42.9 MCV 93.2 MCH 31.3 MCHC 33.6 RDW 12.8 Plt Count 216 MPV 9.8 Neutrophils % 65.3 Lymphocytes % 28.4 Monocytes % 5.2 Eosinophils % 0.6 Basophils % 0.5 PT with INR INR PTT (Actin FS) Sodium 141 Potassium 4.1 Chloride 104 Carbon Dioxide 27 Anion Gap 10 BUN 27 H Creatinine 0.7 Creat Clearance w eGFR Random Glucose 103 Hemoglobin A1c % Calcium 8.7 Phosphorus 4.6 Magnesium 2.2 Total Bilirubin AST ALT Alkaline Phosphatase Troponin I B-Natriuretic Peptide Total Protein Albumin Triglycerides 202 H Cancelled Cholesterol 313 H Cancelled Total LDL Cholesterol 209 H Cancelled HDL Cholesterol 47 Cancelled 11/02/17 11/02/17 11/02/17 06:30 07:20 11:25 WBC RBC Hgb Hct MCV MCH MCHC RDW Plt Count MPV Neutrophils % Lymphocytes % Monocytes % Eosinophils % Basophils % PT with INR 11.50 INR 1.02 PTT (Actin FS) 27.2 Sodium Potassium Chloride Carbon Dioxide Anion Gap BUN Creatinine Creat Clearance w eGFR Random Glucose Hemoglobin A1c % 5.7 Calcium Phosphorus Magnesium Total Bilirubin AST ALT Alkaline Phosphatase Troponin I 3.72 H* B-Natriuretic Peptide Total Protein Albumin Triglycerides Cholesterol Total LDL Cholesterol HDL Cholesterol HOSPITAL COURSE: Date of Admission:11/02/17 Patient is a 72 year old female with a past medical history of CAD (s/p 1 stent in 2000), HTN, NIDDM, and anxiety arrived to the emergency room complaining of severe midsternal chest pain radiating to her neck and diaphoresis of 1 day duration. Patient had 2 prior episodes that week but decided to call the ambulance after this pain did not dissipate on its own. In he hospital, patient was found to be hypertensive and had a significant EKG finding of ST depressions. Patient's labs revealed a troponin of 0.25. A repeat troponin was > 3. Patient was admitted for the treatment of NSTEMI. Patient was given aspirin, plavix, heparin drip, echocardiogram, and lipid profile was drawn. Patient was found to have elevated cholesterol. Patient's blood pressure was controlled and she felt clinically improved. Cardiology was consulted and it was recommended that patient be transferred to tertiary care facility at [facility] for cardiac catheterization. Patient was transferred the same day. Date of Discharge: 11/02/17 Minutes to complete discharge: 35 Discharge Summary Reason For Visit: ELEVATED TROPONIN LEVEL Condition: Stable - Instructions Referrals: STAFF,NOT ON [Primary Care Provider] - Disposition: TRANSFER ACUTE CARE/OTHER HOSP - Home Medications Comprehensive Discharge Medication List: Ambulatory Orders Alprazolam [Xanax -] 0.5 mg PO Q8H PRN 05/07/13 Aspirin 81 mg PO DAILY 05/07/13 Ubidecarenone [Co Q-10] 200 mg PO DAILY 05/07/13 Vitamin B Complex 1 each PO DAILY 05/07/13 Vitamin E 400 unit PO DAILY 05/07/13 Cholecalciferol (Vitamin D3) [Vitamin D] 500 unit PO DAILY 10/22/15 Hydrochlorothiazide [Hctz -] 12.5 mg PO DAILY 10/22/15 Potassium 99 mg PO DAILY 10/22/15 Cyclosporine [Restasis] 1 each OP BID 09/05/16 Olopatadine HCl [Pataday] 2.5 ml OP BID 09/05/16 Timolol 0.25% [Timoptic 0.25%] 5 ml OD DAILY 09/05/16 Candesartan Cilexetil [Atacand -] 32 mg PO DAILY 11/02/17 Insulin Glargine,Hum.rec.anlog [Lantus (nf)] 0 units SQ HS 11/02/17 This patient is new to me today: Yes Date on this admission: 11/02/17 Emergency Visit: Yes ED Registration Date: 11/02/17 Care time: The patient presented to the Emergency Department on the above date and was hospitalized for further evaluation of their emergent condition. Critical Care patient: No - Discharge Referral Referred to [facility] No
== END 2017-11-02 13:55 | disposition short-term general hospital (02) | DRG 282 ==
LOC: JER 03:05 → JERBED 06:07
PROVIDERS: ADMIT Internal Medicine; ATTEND Internal Medicine
DX: I21.29 ST elevation (STEMI) myocardial infarction involving other sites (principal); R07.89 Other chest pain; I25.10 Atherosclerotic heart disease of native coronary artery without angina pectoris; I10 Essential (primary) hypertension; E11.9 Type 2 diabetes mellitus without complications; F41.8 Other specified anxiety disorders; E78.00 Pure hypercholesterolemia, unspecified; E04.1 Nontoxic single thyroid nodule; R91.8 Other nonspecific abnormal finding of lung field; R79.89 Other specified abnormal findings of blood chemistry; Z79.4 Long term (current) use of insulin; Z95.5 Presence of coronary angioplasty implant and graft; K21.9 Gastro-esophageal reflux disease without esophagitis; M54.5 Low back pain; E66.8 Other obesity; Z68.28 Body mass index [BMI] 28.0-28.9, adult
CPT/HCPCS: 36415; 71010-TC; 80048; 80053; 80061; 83036; 83721; 83735; 83880; 84100; 84484; 85025; 85610; 85730; 93005; 93010; 93306-TC; 99285-25; J1644

== ENCOUNTER 2018-07-31 12:06 | Emergency (ER) | payer OTHER ==
[2018-07-31 12:14] VITALS: BMI 34.4
--- NOTE | 2018-07-31 12:21 | PDOC ---
History of Present Illness - General Chief Complaint: Lightheaded Stated Complaint: BLOOD PRESSURE PROBLEM Time Seen by Provider: 07/31/18 12:20 - History of Present Illness Initial Comments: 07/31/18 12:55 The patient is a 73 year old female with a history of HTN, HLD, DM, Anxiety, CAD s/p stenting x2 who presents for evaluation of high blood pressure. The patient reports a several day history of elevated blood pressures despite taking her home medications. She states that she stopped taking her xanax several weeks ago and has been more anxious over the past few days. She notes that her pressures normally run between 120-130 systolics, but she noted a systolic bp of over 200 prompting her presentation to the ED. She notes a pounding sensation in her head and chest heaviness, but otherwise denies fevers , chills, SOB, chest pain, nausea, vomiting, abdominal pain, or changes with bowel movements. She does endorse some increased urinary frequency. Past History - Past Medical History Allergies/Adverse Reactions: Allergies Allergy/AdvReac Type Severity Reaction Status Date / Time Fvsffwl-Uin-Iln Reductase Allergy Verified 07/31/18 12:15 Inhibitor Home Medications: Ambulatory Orders Aspirin 81 mg PO DAILY 05/07/13 Hydrochlorothiazide [Hctz -] 12.5 mg PO DAILY PRN 10/22/15 Insulin Glargine,Hum.rec.anlog [Lantus (nf)] 0 units SQ ASDIR 11/02/17 Clopidogrel Bisulfate [Plavix] 75 mg PO DAILY 07/31/18 Evolocumab [Repatha Syringe] 140 mg SQ ASDIR 07/31/18 Famotidine [Pepcid -] 20 mg PO DAILY #30 tablet 07/31/18 Lisinopril [Prinivil] 10 mg PO DAILY 07/31/18 Metoprolol Succinate [Toprol Xl] 25 mg PO DAILY 07/31/18 Anemia: No Asthma: No Cancer: No Cardiac Disorders: Yes (CAD) CVA: No COPD: No CHF: No DVT: No Dementia: No Diabetes: Yes GI Disorders: Yes (C DIFF) Disorders: No HTN: Yes Hypercholesterolemia: Yes Liver Disease: No Seizures: No Thyroid Disease: No - Surgical History Abdominal Surgery: No Appendectomy: No Cardiac Surgery: Yes (STENT X 1 2000, angioplasty) Cholecystectomy: Yes (09/2011) Lung Surgery: No Orthopedic Surgery: No - Immunization History Immunization Up to Date: Yes - Suicide/Smoking/Psychosocial Hx Smoking Status: No Smoking History: Never smoked Have you smoked in the past 12 months: No Number of Cigarettes Smoked Daily: 0 If you are a former smoker, when did you quit?: 40 YRS AGO Information on smoking cessation initiated: No 'Breaking Loose' booklet given: 06/14/14 Hx Alcohol Use: No Drug/Substance Use Hx: No Substance Use Type: None Hx Substance Use Treatment: No Review of Systems - Review of Systems Comments:: 07/31/18 13:00 Constitutional: No fevers, chills, fatigue, malaise HEENT: No Rhinorrhea, nasal congestion, visual changes Cardiovascular: No chest pain, syncope, palpitations, lightheadedness Respiratory: No Cough, SOB, Hemoptysis, Gastrointestinal: No Abdominal pain, Nausea, Vomiting, Constipation, Diarrhea, Melena Genitourinary: Increased Frequency. No Dysuria, Urgency, Hesitancy, Hematuria, Flank pain Musculoskeletal: No Myalgia, arthralgia Skin: No rashes, itching, bruising, pallor Neurologic: No Headache, Dizziness, Numbness, Weakness, or Tingling Psychiatric: No Hallucinations. No SI or HI *Physical Exam - Vital Signs Last Vital Signs Temp Pulse Resp BP Pulse Ox 98.2 F 76 16 224/65 96 07/31/18 12:11 07/31/18 12:11 07/31/18 12:11 07/31/18 12:11 07/31/18 12:11 - Physical Exam Comments: 07/31/18 13:01 General Appearance: Nourished. Anxious appearing. No Apparent Distress HEENT: EOMI, DELISA. No Pharyngeal Erythema, Tonsillar Exudate, Tonsillar Erythema Neck: No Cervical Lymphadenopathy Respiratory/Chest: Lungs Clear, Normal Breath Sounds. No Crackles, Rales, Rhonchi, Wheezing Cardiovascular: Regular Rhythm, Regular Rate. No Murmur, Gallops, Rubs Gastrointestinal/Abdominal: Normal Bowel Sounds, Soft. No Guarding, Rebound, Tenderness Musculoskeletal: No CVA Tenderness Extremity: Normal Capillary Refill Integumentary: Normal Color, Dry, Warm Neurologic: maintenance worker swimming pool II-XII NML intact, Fully Oriented, Alert, Normal Mood/Affect, Normal Response, Motor Strength 5/5. Heart Score/ECG Review #1 ECG reviewed & interpreted by me at: 13:02 General ECG Interpretation: Sinus Rhythm, Normal Rate, Normal Intervals, No acute ischemic changes ED Treatment Course - LABORATORY CBC & Chemistry Diagram: 07/31/18 13:36 07/31/18 13:36 Medical Decision Making - Medical Decision Making 07/31/18 13:02 The patient is a 73 year old female with a history of HTN, HLD, DM, Anxiety, CAD s/p stenting x2 who presents for evaluation of high blood pressure. Differential includes but is not limited: ACS, Hypertensive, Anxiety, UTI, Infectious, Metabolic Derangement. Given the patient's history and physical exam, we will obtain a cbc, cmp, troponin, bnp, ekg, chest plain film, head ct to evaluate further. We will treat with xanax and lisinopril here in the ED and continue to monitor and reassess in the meantime. We discussed the case with the patient's blunger machine operator Dr. Galicia who notes that the patient's anxiety may be contributing to the patient's current hypertension and notes that she has a cardiac history with her most recent stenting in 2017. 07/31/18 18:01 CBC, cmp, troponin and repeat troponin, bnp were unremarkable. Chest plain film is unremarkable. Head CT is unremarkable as read by our radiologist. The patient's blood pressure has improved here in the ED without intervention. We are comfortable discharging the patient home with cardiology and primary care provider follow up. We discussed the results, plan, and return precautions with the patient who voiced understanding and is agreeable with the plan. *DC/Admit/Observation/Transfer Diagnosis at time of Disposition: Hypertension Qualifiers: Hypertension type: unspecified Qualified Code(s): I10 - Essential (primary) hypertension - Discharge Dispostion Disposition: HOME Condition at time of disposition: Stable Decision to Admit order: No - Prescriptions Prescriptions: Famotidine [Pepcid -] 20 mg PO DAILY #30 tablet - Referrals Referrals: Steve Riley [Primary Care Provider] - - Patient Instructions Printed Discharge Instructions: DI for High Blood Pressure Additional Instructions: Please return to the ER if you experience concerning or worsening symptoms including worsening difficulty breathing, weakness, or chest pain. Your lab results were normal here in the ER. Your head CT scan and chest x-ray were normal here in the ER as well. Please continue to take all your home medications and discuss possible medication changes to help manage your blood pressure with your blunger machine operator and primary care provider. Please call to schedule a follow up appointment with your primary care provider and blunger machine operator within 1-2 days to discuss your ER visit and further management of your symptoms. - Post Discharge Activity Forms/Work/School Notes: Back to Work
[2018-07-31] MEDS ORDERED: ALPRAZolam 0.25 MG TABLET PO ONE (12:42)
[2018-07-31] MEDS ORDERED: LISINOPRIL 10 MG TABLET (FP) PO ONE (12:43)
[2018-07-31] MEDS ORDERED: ALPRAZolam 0.25 MG TABLET ONE (13:12)
--- NOTE | 2018-07-31 13:46 | PDOC ---
Attending Attestation - Resident Resident Name: Greyson Hitchcock - ED Attending Attestation I have performed the following: I have examined & evaluated the patient, The case was reviewed & discussed with the resident, I agree w/resident's findings & plan, Exceptions are as noted - HPI HPI: 07/31/18 13:48 73 F with h/o HTN, HLD, DM, Anxiety, CAD s/p stenting x2, presenting with elevated BP. Pt states that her BP at home was 200/60. Normally she runs from 120 to 150 systolic. Pt denies any CP/SOB but states that she can hear her heartbeat in her ears. Pt denies recent changes in her medications. Pt endorses significant life stressors currently regarding deaths of family members and anxiety regarding her eating habits. She admits to dietary indiscretions last week, eating more carbs and salt than her dog day care attendant recommends. Pt denies leg swelling, denies orthopnea, denies GRIMALDO. Pt denies abdominal pain/N /V. - Physicial Exam PE: 07/31/18 13:51 GENERAL: Awake, alert, and fully oriented, in no acute distress. HEAD: No signs of trauma EYES: PERRLA, EOMI, sclera anicteric, conjunctiva clear ENT: Auricles normal inspection, hearing grossly normal, nares patent, oropharynx clear without exudates. Moist mucosa NECK: Nontender, no stepoffs, Normal ROM, supple, no lymphadenopathy, JVD, or masses LUNGS: Breath sounds equal, clear to auscultation bilaterally. No wheezes, and no crackles HEART: Regular rate and rhythm, normal S1 and S2, no murmurs, rubs or gallops ABDOMEN: Soft, nontender, normoactive bowel sounds. No guarding, no rebound. No masses EXTREMITIES: Normal range of motion, no edema. No clubbing or cyanosis. No cords, erythema, or tenderness NEUROLOGICAL: Cranial nerves II through XII intact. 5/5 strength and sensation in all extremities, Normal speech, normal gait, normal cerebellar function SKIN: Warm, Dry, normal turgor, no rashes or lesions noted. - Medical Decision Making 07/31/18 13:51 73 F with asymptomatic HTN. BP in triage was 224/65. At time of my evaluation, BP had improved to 150s/60 without any intervention. Elevation in BP likely stress/anxiety-related. Will check labs and CT head to r/o end organ damage. - Labs, trop, UA - CT head - Monitor in ED 07/31/18 17:[address] head normal Trop negative x 2 Pt is well appearing, with normal vitals. Clinically stable for DC at this time. I discussed the physical exam findings, ancillary test results and final diagnoses with the patient. I answered all of the patient's questions. The patient was satisfied with the care received and felt comfortable with the discharge plan and treatment plan. The patient agrees to follow up with the primary care physician within 24-72 hours.
[2018-07-31 13:48] LABS: BASO % 0.5 % (0-2.0); EOS % 0.6 % (0-4.5); HEMATOCRIT 43.1 % (32.4-45.2); HEMOGLOBIN 14.5 GM/dL (10.7-15.3); LYMPH % 19.5 % (8-40); MCH 30.8 pg (25.7-33.7); MCHC 33.6 g/dl (32.0-36.0); MEAN CELL VOLUME 91.9 fl (80-96); MEAN PLT VOLUME 9.8 fl (7.5-11.1); MONO % 7.4 % (3.8-10.2); PLATELET COUNT 216 K/MM3 (134-434); RDW 12.9 % (11.6-15.6); WHITE BLOOD COUNT 10.8 K/mm3 (4.0-10.0)
[2018-07-31 14:21] LABS: ALBUMIN 3.6 g/dl (3.4-5.0); ANION GAP 7 MMOL/L (8-16); BILIRUBIN,TOTAL 0.4 mg/dL (0.2-1.0); BLOOD UREA NITROGEN 22 mg/dL (7-18); CHLORIDE 104 mmol/L (98-107); CO2 30 mmol/L (21-32); CREATININE 0.8 mg/dL (0.55-1.02); GLUCOSE,RANDOM 162 mg/dL (74-106); SGPT/ALT 38 U/L (12-78); SODIUM 141 mmol/L (136-145); TOT PROT 7.1 g/dl (6.4-8.2)
[2018-07-31 14:24] LABS: ALK PHOS 73 U/L (45-117); N-TERMINAL BNP 191.31 pg/ml (5-125)
[2018-07-31 14:40] LABS: POTASSIUM 5.4 mmol/L (3.5-5.1)
[2018-07-31 14:41] LABS: SGOT/AST 32 U/L (15-37)
[2018-07-31 15:53] LABS: URINE APPEARANCE SLCLOUDY; URINE BILIRUBIN NEGATIVE (<2.0 mg/dL); URINE COLOR YELLOW; URINE GLUCOSE (UA) 2+ (NEGATIVE); URINE KETONE NEGATIVE (NEGATIVE); URINE LEUK ESTERASE NEGATIVE (NEGATIVE); URINE NITRITE NEGATIVE (NEGATIVE); URINE PROTEIN NEGATIVE (NEGATIVE); URINE UROBILINOGEN NEGATIVE mg/dL (0.2-1.0)
[2018-07-31] MEDS ORDERED: MAG HYDROX/AL HYDROX/SIMETH 30 ML UNIT-DOSE CUP PO ONE (18:06)
[2018-07-31] MEDS ORDERED: MAG HYDROX/AL HYDROX/SIMETH 30 ML UNIT-DOSE CUP ONE (18:08)
[2018-07-31 18:20] VITALS: BP 143/44; PULSE 60; TEMP 98.1
--- NOTE | 2018-08-01 11:51 | EKG ---
Test Reason : Blood Pressure : / mmHG Vent. Rate : 070 BPM Atrial Rate : 070 BPM P-R Int : 160 ms QRS Dur : 074 ms QT Int : 384 ms P-R-T Axes : 030 022 047 degrees QTc Int : 414 ms SINUS RHYTHM WITH OCCASIONAL PREMATURE VENTRICULAR COMPLEXES OTHERWISE NORMAL ECG WHEN COMPARED WITH ECG OF 02-NOV-2017 10:03, PREMATURE VENTRICULAR COMPLEXES ARE NOW PRESENT Confirmed by TREE PHELAN, NEMO ([id number]) on 08/01/2018 11:51:05 AM Referred By: Confirmed By:NEMO LEAVITT MD
== END 2018-07-31 18:20 | disposition home or self-care (01) ==
LOC: JER 12:06
DX: I10 Essential (primary) hypertension (principal); I25.10 Atherosclerotic heart disease of native coronary artery without angina pectoris; Z95.5 Presence of coronary angioplasty implant and graft; E11.9 Type 2 diabetes mellitus without complications; Z79.4 Long term (current) use of insulin; E78.00 Pure hypercholesterolemia, unspecified; F41.9 Anxiety disorder, unspecified
CPT/HCPCS: 36415; 70450-TC; 71045-TC-FY; 80053; 81003; 82550; 82553; 82962; 83880; 84484; 85025; 93005; 93010; 99283-25

== ENCOUNTER 2018-08-11 11:50 | Emergency (ER) | payer OTHER ==
[2018-08-11 11:59] VITALS: PULSE 71; TEMP 98.5; BMI 33.9
--- NOTE | 2018-08-11 12:43 | PDOC ---
History of Present Illness - General Chief Complaint: Blood Pressure Problem Stated Complaint: BLOOD PRESSURE Time Seen by Provider: 08/11/18 12:07 History Source: Patient, Old Records Exam Limitations: No Limitations - History of Present Illness Initial Comments: 73 y/o female presenting to [facility] ER via private auto complaining of elevated blood pressure readings at home. Reports she was bad and ate a calzone last evening. Found her initial BP to be elevated above 200 systolic, with similar repeat readings. She then took three times her daily lisinopril dose (totalling 30mg), her regular dose of HCTZ, and two Xanax (totalling 1mg) prior to arrival. Denies symptoms, including headache, change in vision, nausea/vomiting , chest pain, or SOB. Reports she would not be aware her BP was elevated if she had not measured it. Here for similar 07/31/2018. Evaluated by her engineering analyst as outpatient the next day. No change was made to her home regiment. Was told to be cautious with obsessively checking her BP at home as it often heightened her anxiety. PCP: Dr. Riley Cnmt: Dr. Galicia Medical Hx: CAD s/p stenting x2 (last 2016) HTN HLD DM Anxiety Past History - Past Medical History Allergies/Adverse Reactions: Allergies Allergy/AdvReac Type Severity Reaction Status Date / Time Vdftduu-Prm-Oeu Reductase Allergy Verified 08/11/18 11:54 Inhibitor Home Medications: Ambulatory Orders Aspirin 81 mg PO DAILY 05/07/13 Hydrochlorothiazide [Hctz -] 12.5 mg PO DAILY PRN 10/22/15 Insulin Glargine,Hum.rec.anlog [Lantus (nf)] 0 units SQ ASDIR 11/02/17 Clopidogrel Bisulfate [Plavix] 75 mg PO DAILY 07/31/18 Evolocumab [Repatha Syringe] 140 mg SQ ASDIR 07/31/18 Famotidine [Pepcid -] 20 mg PO DAILY #30 tablet 07/31/18 Lisinopril [Prinivil] 10 mg PO DAILY 07/31/18 Metoprolol Succinate [Toprol Xl] 25 mg PO DAILY 07/31/18 Anemia: No Asthma: No Cancer: No Cardiac Disorders: Yes (CAD) CVA: No COPD: No CHF: No DVT: No Dementia: No Diabetes: Yes GI Disorders: Yes (C DIFF) Disorders: No HTN: Yes Hypercholesterolemia: Yes Liver Disease: No Seizures: No Thyroid Disease: No - Surgical History Abdominal Surgery: No Appendectomy: No Cardiac Surgery: Yes (STENT X 1 2000, angioplasty) Cholecystectomy: Yes (09/2011) Lung Surgery: No Orthopedic Surgery: No - Immunization History Immunization Up to Date: Yes - Suicide/Smoking/Psychosocial Hx Smoking Status: No Smoking History: Never smoked Have you smoked in the past 12 months: No Number of Cigarettes Smoked Daily: 0 If you are a former smoker, when did you quit?: 40 YRS AGO 'Breaking Loose' booklet given: 06/14/14 Hx Alcohol Use: No Drug/Substance Use Hx: No Substance Use Type: None Hx Substance Use Treatment: No Cardiac Specific PMH - Complaint Specific PMHX Pacemaker: No Review of Systems - Review of Systems Able to Perform ROS?: Yes Comments:: In addition to that documented in the HPI above, the additional ROS was obtained : Constitutional: Denies fevers or chills Eyes: Denies vision changes ENMT: Denies sore throat CV: Denies chest pain, worsening pretibial edema, orthopnea Resp: Denies SOB GI: Denies vomiting or diarrhea Is the patient limited Latvian proficient: No *Physical Exam - Vital Signs Last Vital Signs Temp Pulse Resp BP Pulse Ox 98.5 F 71 18 161/66 99 08/11/18 11:55 08/11/18 11:55 08/11/18 11:55 08/11/18 13:26 08/11/18 11:55 - Physical Exam Comments: Constitutional: Well-developed, well-nourished female in no acute distress. Found sitting upright on edge of bed.. Alert and oriented x4. Answered all questions appropriately and completely. Speech was non-labored, non-pressured. HEENT: Normocephalic. No obvious external signs of trauma. Hearing grossly normal. No nasal discharge. Neck is supple, trachea is midline. Cardiovascular: Regular rate and regular rhythm. No murmur, rubs, clicks, or gallops. Peripheral pulses: Radial pulses full. Respiratory: Breathing unlabored. Equal chest rise and fall. Clear to auscultation bilaterally. No stridor, no wheezing, no rhonchi. Gastrointestinal: abdomen is soft, non-tender, non-distended. Neuro: Alert and oriented. Moving all four extremities spontaneously. Intact sensation to all four extremities. Proximal and distal strength 5/5, resource recovery engineer strength 5/5 - equal and symmetric. Plantar flexion and dorsiflexion 5/5. Gait normal, observed walking through the department without obvious difficulty. MSK / Skin: Warm, dry, and intact. No bruising, rashes, or other lesions. 1+ pretibial edema. Psych: Affect: appropriate. Mood: normal. Medical Decision Making - Medical Decision Making *Reviewed vital signs, nursing notes, and prior visit documentation (if available). 73 y/o female presenting with asymptomatic hypertension. Pt reports heavy salt intake last evening. BP lowered by taking triple dose the dose of her home BP medication prior to arrival. Afebrile. Vitals remarkable for markedly lower BP compared to home readings reported by pt. Benign physical exam. Low suspicion for ACS or hypertensive emergency. Will obtain EKG and repeat BP. No imaging indicated at this time. EKG: Sinus rhythm with a ventricular rate of 64 bpm. Normal axis. Normal intervals. No ST segment elevation or depression. No hyperacute T waves. No interval changes from previous EKG dated 31 Jul 2018. Repeat BP in similar range as triage. Low suspicion for further decrease in BP as pt took the medication over 3 hours ago. Safe for discharge. Pt instructed to hold evening BP medication and restart in the AM. Discussed EKG and physical exam results with pt. Answered all questions. Provided return precautions. Pt expressed verbal understanding and agreement with plan to discharge home with outpatient follow up. *DC/Admit/Observation/Transfer Diagnosis at time of Disposition: Asymptomatic hypertension - Discharge Dispostion Disposition: HOME Condition at time of disposition: Good Decision to Admit order: No - Referrals Referrals: Steve Riley [Primary Care Provider] - Cj Galicia [Other] (Cnmt of Record) - Patient Instructions Printed Discharge Instructions: DI for High Blood Pressure Additional Instructions: Your blood pressure measurements have improved in the department over the ones you reported from home. This is likely because of the lisinopril and hydrochlorothiazide you took prior to coming to the hospital. Do not take your evening lisinopril dose. Restart taking your medications as regularly scheduled tomorrow morning. Your blood pressure is not likely to drop much lower as the onset of action for the medications is usually within 2-3 hours. You should follow up with your primary care doctor or your engineering analyst within the next week. You will need to call to make an appointment. If you develop a headache, sweats, lethargy, a change in mentation, or difficulty ambulating go to the nearest emergency department. You can also go to the nearest emergency department if you feel like your condition requires additional emergency evaluation. Print Language: PERUVIAN - Post Discharge Activity
[2018-08-11 13:27] VITALS: BP 161/66
--- NOTE | 2018-08-11 14:07 | PDOC ---
Attending Attestation - Resident Resident Name: Woo Bahena - ED Attending Attestation I have performed the following: I have examined & evaluated the patient, The case was reviewed & discussed with the resident, I agree w/resident's findings & plan - HPI HPI: 08/11/18 13:34 KATHRYN CLARK 73 year old female with a history of HTN, HLD, DM, Anxiety, CAD s/p stenting x2 who presents for evaluation of high blood pressure s/p eating calzone last night. took BP this morning, with SbP>200s every 15 minutes. took extra dose of lisinopril today in response to high BP; sugars also elevated, took usual regimen of insulin. denies CP, sob, roberts, dizziness, weakness or paresthesias. Came to ED over concern of asymptomatic hypertension 08/11/18 13:38 - Physicial Exam PE: 08/11/18 13:38 NAD, well appearing, MMM, nl conjunctiva, anicteric; neck supple. lungs clear, RRR, abdomen soft nontender. BRAY x4, no focal neuro deficits. No peripheral edema. normal color for ethnicity, WWP. - Medical Decision Making 08/11/18 13:37 KATHRYN CLARK 73 year old female with a history of HTN, HLD, DM, Anxiety, CAD s/p stenting x2 who presents for evaluation of asymptomatic high blood pressure s/p eating calzone last night. vitals with mild asymptomatic HTN with SBP in 150-160s. no e/o end organ damage or symptoms to suggest so, as no cp, sob, neuro changes, roberts or dizziness. repeat BP improved and downtrended. EKG normal sinus rhythm, no interval abnormalities, narrow QRS, ST and T wave segments and morphology normal. Nonspecific T wave abnormalities in III, no contiguous lead changes. Q wave in III, old. no further testing warranted as BP improved and asymptomatic, no further indication to treat. compliance of meds discussed, DC in stable condition, impression and plan discussed. return precautions discussed, including monitoring of BP, avoid triggers such as salty foods. s/s including cp, sob, dizziness, syncope, pain, infection, neuro changes. pt verbalized understanding of plan. hold nighttime lisinopril, do not take more than instructed and resume regimen tomorrow. 08/11/18 13:38 Heart Score/ECG Review - ECG Impressions Comment:: 08/11/18 14:07 EKG normal sinus rhythm, no interval abnormalities, narrow QRS, ST and T wave segments and morphology normal. Nonspecific T wave abnormalities in III, no contiguous lead changes. Q wave in III, old.
--- NOTE | 2018-08-11 15:25 | EKG ---
Test Reason : Blood Pressure : / mmHG Vent. Rate : 064 BPM Atrial Rate : 064 BPM P-R Int : 134 ms QRS Dur : 076 ms QT Int : 406 ms P-R-T Axes : 035 006 040 degrees QTc Int : 418 ms NORMAL SINUS RHYTHM INFERIOR INFARCT , AGE UNDETERMINED ABNORMAL ECG WHEN COMPARED WITH ECG OF 31-JUL-2018 12:21, PREMATURE VENTRICULAR COMPLEXES ARE NO LONGER PRESENT Confirmed by MD Ghulam, Greyson ([id number]) on 08/11/2018 3:25:31 PM Referred By: Confirmed By:Greyson Parmar MD
== END 2018-08-11 13:50 | disposition home or self-care (01) ==
LOC: JER 11:50
DX: I10 Essential (primary) hypertension (principal); I25.10 Atherosclerotic heart disease of native coronary artery without angina pectoris; Z95.5 Presence of coronary angioplasty implant and graft; E11.9 Type 2 diabetes mellitus without complications; Z79.4 Long term (current) use of insulin; E78.5 Hyperlipidemia, unspecified; F41.9 Anxiety disorder, unspecified; Z90.49 Acquired absence of other specified parts of digestive tract
CPT/HCPCS: 93005; 93010; 99281-25

== ENCOUNTER 2018-12-19 03:46 | Emergency (ER) | payer OTHER ==
[2018-12-19 05:10] VITALS: BMI 34.4
--- NOTE | 2018-12-19 05:25 | PDOC ---
Attending Attestation - HPI HPI: 12/19/18 06:30 The patient is a 73 year old female, with a significant past medical history of of HTN, HLD, DM, Anxiety, CAD (s/p stenting x2), who presents to the emergency department with 4 days of diarrhea. Patient had 4 episodes of diarrhea in the last 24 hours and notes bleeding from hemorrhoids. Patient was +C-diff 2 years ago. She reports being on a recent course of amoxicillin for an ear infection; finished 2 weeks ago. Patient is also complaining of epigastric pain. The patient denies any fever or chills. Denies any chest pain or shortness of breath. Denies any urinary symptoms. Allergies: Statins-Hmg- Coa Reductase Inhibitor Past surgical history: Cardiac Surgery (STENT X 2000, angioplasty), Cholecystectomy (09/2011) Social history: None reported PCP: Dr. Riley - Physicial Exam PE: 12/19/18 06:30 Agreed with resident exam. <Jose Stephenson - Last Filed: 12/19/18 06:29> - Resident Resident Name: Obi Bradford - ED Attending Attestation I have performed the following: I have examined & evaluated the patient, The case was reviewed & discussed with the resident, I agree w/resident's findings & plan - Medical Decision Making 12/19/18 06:52 73-year-old female with multiple complaints including diarrhea and epigastric pain Labs and EKG pending Case signed out to oncoming shift for reevaluation and final disposition. <Carmen Chris - Last Filed: 12/19/18 06:52> Attestations - Attestations 12/19/18 06:30 Documentation prepared by Jose Stephenson, acting as medical attendant for Carmen Chris DO, MD <Jose Stephenson - Last Filed: 12/19/18 06:29>
[2018-12-19] MEDS ORDERED: ONDANSETRON 4 MG/2 ML VIAL IVPUSH ONE (05:36)
[2018-12-19] MEDS ORDERED: SODIUM CHLORIDE 1,000 ML IV STA (05:36)
[2018-12-19] MEDS ORDERED: FAMOTIDINE 20 MG/50 ML IVPB 20 MG/50 ML MG IVPB ONE ×2 (06:18→07:49)
--- NOTE | 2018-12-19 06:45 | PDOC ---
History of Present Illness - General Chief Complaint: Blood Pressure Problem Stated Complaint: BP PROBLEM/DIARRHEA Time Seen by Provider: 12/19/18 05:21 History Source: Patient Exam Limitations: No Limitations - History of Present Illness Initial Comments: 12/19/18 06:40 Patient is 73F with history of CAD, HTN, IDDM, anxiety and c diff here today complaining of diarrhea for the past four days. Patient complains of associated nausea and 1 episode of vomiting. No sick contacts, associates onset with dinner at [employer]. Endorses an epigastric "pressure" with no worsening or improving factors. Patient complains of one episode of shortness of breath. Denies dysuria. Patient endorses small amount of blood with wiping from her hemorrhoids after multiple bowel movements. Patient states that she took amoxicillin for an ear infection ending two weeks ago, had C diff two years ago. Patient states that she's also concerned because her blood pressure has been high for the past three days. She also complains of a headache that onset insidiously three days ago over her frontal region of her head. No sudden onset , no changes in vision. Past History - Past Medical History Allergies/Adverse Reactions: Allergies Allergy/AdvReac Type Severity Reaction Status Date / Time Fbogahp-Ncz-Jnq Reductase Allergy Verified 12/19/18 05:10 Inhibitor Home Medications: Ambulatory Orders Aspirin 81 mg PO DAILY 05/07/13 Hydrochlorothiazide [Hctz -] 12.5 mg PO DAILY PRN 10/22/15 Insulin Glargine,Hum.rec.anlog [Lantus (nf)] 0 units SQ ASDIR 11/02/17 Clopidogrel Bisulfate [Plavix] 75 mg PO DAILY 07/31/18 Evolocumab [Repatha Syringe] 140 mg SQ ASDIR 07/31/18 Famotidine [Pepcid -] 20 mg PO DAILY #30 tablet 07/31/18 Lisinopril [Prinivil] 10 mg PO DAILY 07/31/18 Metoprolol Succinate [Toprol Xl] 25 mg PO DAILY 07/31/18 Anemia: No Asthma: No Cancer: No Cardiac Disorders: Yes (CAD) CVA: No COPD: No CHF: No DVT: No Dementia: No Diabetes: Yes GI Disorders: Yes (C DIFF) Disorders: No HTN: Yes Hypercholesterolemia: Yes Liver Disease: No Seizures: No Thyroid Disease: No - Surgical History Abdominal Surgery: No Appendectomy: No Cardiac Surgery: Yes (STENT X 1 2000, angioplasty) Cholecystectomy: Yes (09/2011) Lung Surgery: No Orthopedic Surgery: No - Immunization History Immunization Up to Date: Yes - Suicide/Smoking/Psychosocial Hx Smoking Status: No Smoking History: Former smoker Have you smoked in the past 12 months: No Number of Cigarettes Smoked Daily: 0 If you are a former smoker, when did you quit?: 1970 Information on smoking cessation initiated: No 'Breaking Loose' booklet given: 06/14/14 Hx Alcohol Use: Yes Drug/Substance Use Hx: No Substance Use Type: None Hx Substance Use Treatment: No Review of Systems - Review of Systems Comments:: 12/19/18 06:45 GENERAL/CONSTITUTIONAL: No fever or chills. No weakness. HEAD, EYES, EARS, NOSE AND THROAT: No change in vision. No sore throat. CARDIOVASCULAR: No chest pain +shortness of breath RESPIRATORY: No cough, wheezing, or hemoptysis. GASTROINTESTINAL: +nausea, +vomiting, +diarrhea. GENITOURINARY: No dysuria, frequency, or change in urination. MUSCULOSKELETAL: No joint or muscle swelling or pain. No neck or back pain. SKIN: No rash NEUROLOGIC: No headache, vertigo, loss of consciousness, or change in strength/ sensation. ENDOCRINE: No increased thirst. No abnormal weight change HEMATOLOGIC/LYMPHATIC: No anemia, easy bleeding, or history of blood clots. ALLERGIC/IMMUNOLOGIC: No hives or skin allergy. *Physical Exam - Vital Signs Last Vital Signs Temp Pulse Resp BP Pulse Ox 98.0 F 66 17 198/76 H 96 12/19/18 03:46 12/19/18 03:46 12/19/18 03:46 12/19/18 03:46 12/19/18 03:46 - Physical Exam Comments: 12/19/18 06:46 GENERAL: Awake, alert, and fully oriented, in no acute distress HEAD: No signs of trauma, normocephalic, atraumatic EYES: PERRLA, EOMI, sclera anicteric, conjunctiva clear ENT: Auricles normal inspection, hearing grossly normal, nares patent, oropharynx clear without exudates. Moist mucosa NECK: Normal ROM, supple, no lymphadenopathy, JVD, or masses LUNGS: No distress, speaks full sentences, clear to auscultation bilaterally HEART: Regular rate and rhythm, normal S1 and S2, no murmurs, rubs or gallops, peripheral pulses normal and equal bilaterally. ABDOMEN: Soft, nontender, normoactive bowel sounds. No guarding, no rebound. No masses EXTREMITIES: Normal inspection, Normal range of motion, no edema. No clubbing or cyanosis. NEUROLOGICAL: Cranial nerves II through XII grossly intact. Normal speech, normal gait, no focal sensorimotor deficits SKIN: Warm, Dry, normal turgor, no rashes or lesions noted. Moderate Sedation - Procedure Monitoring Vital Signs: Procedure Monitoring Vital Signs Temperature 98.0 F 12/19/18 03:46 Pulse Rate 66 12/19/18 03:46 Respiratory Rate 17 12/19/18 03:46 Blood Pressure 198/76 H 12/19/18 03:46 O2 Sat by Pulse Oximetry (%) 96 12/19/18 03:46 Medical Decision Making - Medical Decision Making 12/19/18 06:47 Patient is 73F with history of CAD, HTN, IDDM, anxiety and c diff here today complaining of diarrhea for the past four days. Vitals notable for elevated blood pressure. Will recheck. No chest pain, shortness of breath at this time. Headache not consistent with head bleed. DDx includes, but is not limited to: acs, c diff, viral illness. *DC/Admit/Observation/Transfer Diagnosis at time of Disposition: Diarrhea - Discharge Dispostion Condition at time of disposition: Fair - Referrals Referrals: Steve Riley [Primary Care Provider] - - Patient Instructions - Post Discharge Activity
[2018-12-19] MEDS ORDERED: ONDANSETRON 4 MG/2 ML VIAL ONE (07:49)
[2018-12-19 08:30] LABS: BASO % 0.6 % (0-2.0); EOS % 0.8 % (0-4.5); HEMATOCRIT 42.1 % (32.4-45.2); HEMOGLOBIN 14.5 GM/dL (10.7-15.3); LYMPH % 30.1 % (8-40); MCH 31.9 pg (25.7-33.7); MCHC 34.5 g/dl (32.0-36.0); MEAN CELL VOLUME 92.6 fl (80-96); MEAN PLT VOLUME 9.7 fl (7.5-11.1); MONO % 7.6 % (3.8-10.2); NEUT % 60.9 % (42.8-82.8); PLATELET COUNT 217 K/MM3 (134-434); RBC 4.55 M/mm3 (3.60-5.2); RDW 13.1 % (11.6-15.6); WHITE BLOOD COUNT 7.5 K/mm3 (4.0-10.0)
[2018-12-19 08:39] LABS: INR 1.03 (0.83-1.09); PROTHROMBIN TIME (PATIENT) 12.1 SEC (9.7-13.0)
[2018-12-19 09:00] LABS: URINE APPEARANCE CLEAR; URINE BILIRUBIN NEGATIVE (<2.0 mg/dL); URINE COLOR STRAW; URINE GLUCOSE (UA) NEGATIVE (NEGATIVE); URINE KETONE TRACE (NEGATIVE); URINE LEUK ESTERASE NEGATIVE (NEGATIVE); URINE NITRITE NEGATIVE (NEGATIVE); URINE PROTEIN NEGATIVE (NEGATIVE); URINE UROBILINOGEN NEGATIVE mg/dL (0.2-1.0)
[2018-12-19 09:14] LABS: ALK PHOS 85 U/L (45-117); ANION GAP 6 MMOL/L (8-16); BILIRUBIN,TOTAL 0.5 mg/dL (0.2-1); BLOOD UREA NITROGEN 20 mg/dL (7-18); CHLORIDE 108 mmol/L (98-107); CO2 25 mmol/L (21-32); CREATININE 0.8 mg/dL (0.55-1.3); GLUCOSE,RANDOM 130 mg/dL (74-106); LIPASE 180 U/L (73-393); POTASSIUM 4.5 mmol/L (3.5-5.1); SGOT/AST 50 U/L (15-37); SGPT/ALT 61 U/L (13-61); SODIUM 140 mmol/L (136-145); TOT PROT 7.5 g/dl (6.4-8.2)
[2018-12-19] MEDS ORDERED: LISINOPRIL 20 MG TABLET (FP) PO ONE (09:43)
[2018-12-19] MEDS ORDERED: LISINOPRIL 20 MG TABLET (FP) ONE (09:49)
[2018-12-19 11:55] VITALS: BP 148/51; PULSE 62; TEMP 98.1
--- NOTE | 2018-12-19 11:58 | PDOC ---
*Physical Exam - Vital Signs Last Vital Signs Temp Pulse Resp BP Pulse Ox 97.8 F 96 H 16 166/56 L 98 12/19/18 08:04 12/19/18 08:04 12/19/18 08:04 12/19/18 08:04 12/19/18 08:04 - Physical Exam Comments: 12/19/18 11:53 Patient endorsed to me by Dr. james. 73-year-old female presented with nausea, several bouts of loose watery stools and generalized weakness. In the ER , patient is awake and alert, nontoxic appearing, with stable vital signs. EKG showed no evidence of acute ischemia. CBC/CMP were noted to be without significant abnormality. CPK was noted to be elevated at 500 with a normal troponin. Patient received IV fluids and antiemetics. Repeat CPK was noted to be 455. I do not suspect ACS or rhabdomyolysis at this time. Patient reports resolution of nausea and overall improvement after administration of IV fluids. Patient able tolerate by mouth. Will discharge with PMD and GI follow-up as needed. ED Treatment Course - LABORATORY CBC & Chemistry Diagram: 12/19/18 08:05 12/19/18 08:05 - ADDITIONAL ORDERS Additional order review: Laboratory Results 12/19/18 12/19/18 12/19/18 10:40 08:38 08:05 PT with INR INR Sodium 140 Potassium 4.5 Chloride 108 H Carbon Dioxide 25 Anion Gap 6 L BUN 20 H Creatinine 0.8 Creat Clearance w eGFR > 60 POC Glucometer 139.16768 Random Glucose 130 H Calcium 9.0 Total Bilirubin 0.5 AST 50 H ALT 61 Alkaline Phosphatase 85 Creatine Kinase 455 H 509 H Creatine Kinase Index 1.0 CK-MB (CK-2) 5.3 H Troponin I < 0.02 < 0.02 Total Protein 7.5 Albumin 4.0 Lipase 180 Urine Color Urine Appearance Urine pH Ur Specific [place] Urine Protein Urine Glucose (UA) Urine Ketones Urine Blood Urine Nitrite Urine Bilirubin Urine Urobilinogen Ur Leukocyte Esterase 12/19/18 12/19/18 08:05 08:05 PT with INR 12.10 INR 1.03 Sodium Potassium Chloride Carbon Dioxide Anion Gap BUN Creatinine Creat Clearance w eGFR POC Glucometer Random Glucose Calcium Total Bilirubin AST ALT Alkaline Phosphatase Creatine Kinase Creatine Kinase Index CK-MB (CK-2) Troponin I Total Protein Albumin Lipase Urine Color Straw Urine Appearance Clear Urine pH 5.0 Ur Specific [place] 1.003 L Urine Protein Negative Urine Glucose (UA) Negative Urine Ketones Trace H Urine Blood Negative Urine Nitrite Negative Urine Bilirubin Negative Urine Urobilinogen Negative Ur Leukocyte Esterase Negative 12/19/18 12/19/18 08:38 08:05 RBC 4.55 MCV 92.6 MCHC 34.5 RDW 13.1 MPV 9.7 Neutrophils % 60.9 Lymphocytes % 30.1 D Monocytes % 7.6 Eosinophils % 0.8 Basophils % 0.6 POC Glucometer [phone] - Medications Given in the ED: ED Medications Discontinued Medications Generic Name Dose Route Start Last Admin Trade Name Freq PRN Reason Stop Dose Admin Sodium Chloride 1,000 mls @ 1,000 mls/hr 12/19/18 05:36 12/19/18 07:50 Normal Saline - IV 12/19/18 06:35 1,000 mls/hr ASDIR STA Administration Famotidine/Sodium Chloride 20 mg in 50 mls @ 100 mls/hr 12/19/18 06:18 07:51 Pepcid 20 Mg Premixed Ivpb - IVPB 12/19/18 06:47 100 mls/hr ONCE ONE Administration Lisinopril 20 mg 12/19/18 09:43 12/19/18 09:53 Prinivil PO 12/19/18 09:44 20 mg ONCE ONE Administration Ondansetron HCl 4 mg 12/19/18 05:36 12/19/18 07:50 Zofran Injection IVPUSH 12/19/18 05:37 4 mg ONCE ONE Administration *DC/Admit/Observation/Transfer Diagnosis at time of Disposition: Nausea Diarrhea Qualifiers: Diarrhea type: unspecified type Qualified Code(s): R19.7 - Diarrhea, unspecified - Discharge Dispostion Disposition: HOME Condition at time of disposition: Stable - Referrals Referrals: Steve Riley [Primary Care Provider] - - Patient Instructions Printed Discharge Instructions: DI for Nausea -- Adult, DI for Diarrhea and Traveler's Diarrhea -- Adult Additional Instructions: Mr. Andriy Larsen, patient's , accompanied the patient throughout her stay in the ED. - Post Discharge Activity
--- NOTE | 2018-12-19 14:56 | EKG ---
Test Reason : Blood Pressure : / mmHG Vent. Rate : 057 BPM Atrial Rate : 057 BPM P-R Int : 158 ms QRS Dur : 078 ms QT Int : 458 ms P-R-T Axes : 064 050 058 degrees QTc Int : 445 ms SINUS BRADYCARDIA WITH SINUS ARRHYTHMIA OTHERWISE NORMAL ECG WHEN COMPARED WITH ECG OF 11-AUG-2018 12:49, CRITERIA FOR INFERIOR INFARCT ARE NO LONGER PRESENT Confirmed by TREE PHELAN, NEMO ([id number]) on 12/19/2018 2:55:44 PM Referred By: Confirmed By:NEMO LEAVITT MD
== END 2018-12-19 12:31 | disposition home or self-care (01) ==
LOC: JER 03:46
PROC: 3E033GC Introduction of Other Therapeutic Substance into Peripheral Vein, Percutaneous Approach (ICD-10-PCS; principal; 2018-12-19)
PROC: 3E0337Z Introduction of Electrolytic and Water Balance Substance into Peripheral Vein, Percutaneous Approach (ICD-10-PCS; 2018-12-19)
DX: R19.7 Diarrhea, unspecified (principal); I25.10 Atherosclerotic heart disease of native coronary artery without angina pectoris; E11.9 Type 2 diabetes mellitus without complications; F32.9 Major depressive disorder, single episode, unspecified
CPT/HCPCS: 36415; 80053; 81003; 82550; 82553; 82962; 83690; 84484; 85025; 85610; 93005; 93010; 99285-25; J7030

== ENCOUNTER 2019-07-02 11:49 | Emergency (ER) | payer OTHER | END 2019-07-02 15:00 | disposition home or self-care (01) | LOC: JER 11:49 ==

== ENCOUNTER 2020-11-09 19:17 | Inpatient (IN) | payer OTHER ==
[2020-11-09 19:57] VITALS: BMI 34.4
[2020-11-09 22:03] LABS: BASO % 0.4 % (0-2.0); EOS % 0.5 % (0-4.5); HEMOGLOBIN 16.1 GM/dL (10.7-15.3); LYMPH % 26.8 % (8-40); MCH 31.3 pg (25.7-33.7); MCHC 33.6 g/dl (32.0-36.0); MEAN CELL VOLUME 93.3 fl (80-96); MONO % 7.1 % (3.8-10.2); NEUT % 65.2 % (42.8-82.8); PLATELET COUNT 234 K/MM3 (134-434); RBC 5.15 M/mm3 (3.60-5.2); RDW 13.2 % (11.6-15.6); WHITE BLOOD COUNT 12.4 K/mm3 (4.0-10.0)
[2020-11-09 22:13] LABS: INR 1.02 (0.83-1.09); PROTHROMBIN TIME (PATIENT) 12.5 SEC (9.7-13.0)
[2020-11-09 22:15] LABS: ACTIVATED PTT 27.4 SECONDS (25.2-36.5)
[2020-11-09 22:19] LABS: POTASSIUM 4.3 mmol/L (3.5-5.1)
[2020-11-09 22:23] LABS: ALBUMIN 4.2 g/dl (3.4-5.0); BLOOD UREA NITROGEN 21.9 mg/dL (7-18); CALCIUM 9.8 mg/dL (8.5-10.1)
[2020-11-09 22:27] LABS: CREATININE 0.9 mg/dL (0.55-1.3)
[2020-11-09 22:28] LABS: BILIRUBIN,TOTAL 0.7 mg/dL (0.2-1); TOT PROT 8.1 g/dl (6.4-8.2)
[2020-11-09 22:31] LABS: N-TERMINAL BNP 476.3 pg/ml (5-125)
[2020-11-09] MEDS ORDERED: ASPIRIN 81 MG CHEWABLE TABLETS PO ONE (22:33)
[2020-11-09] MEDS ORDERED: FUROSEMIDE 40 MG/4 ML INJECTABLE VIAL IVPUSH ONE (22:35)
[2020-11-09] MEDS ORDERED: FUROSEMIDE 40 MG/4 ML INJECTABLE VIAL ONE (22:41)
[2020-11-09] MEDS ORDERED: ENOXAPARIN NA (PORCINE) 100 MG/1 ML DISP.SYRIN SQ ONE (23:43)
[2020-11-09] MEDS ORDERED: METOPROLOL TARTRATE 25 MG TABLET (FP) PO ONE (23:45)
[2020-11-10] MEDS ORDERED: METOPROLOL TARTRATE 25 MG TABLET (FP) ONE ×2 (00:01→10:09)
[2020-11-10] MEDS ORDERED: ENOXAPARIN NA (PORCINE) 100 MG/1 ML DISP.SYRIN SQ ONE ×2 (00:01→12:45)
[2020-11-10 07:39] LABS: BASO % 0.4 % (0-2.0); HEMATOCRIT 46.5 % (32.4-45.2); HEMOGLOBIN 15.4 GM/dL (10.7-15.3); LYMPH % 25.1 % (8-40); MCH 31.2 pg (25.7-33.7); MCHC 33.2 g/dl (32.0-36.0); MEAN CELL VOLUME 93.9 fl (80-96); MEAN PLT VOLUME 10.3 fl (7.5-11.1); NEUT % 64.5 % (42.8-82.8); PLATELET COUNT 236 K/MM3 (134-434); RBC 4.95 M/mm3 (3.60-5.2); RDW 13.4 % (11.6-15.6); WHITE BLOOD COUNT 11.1 K/mm3 (4.0-10.0)
[2020-11-10 07:57] LABS: POTASSIUM 4.1 mmol/L (3.5-5.1)
[2020-11-10 07:59] LABS: CALCIUM 9.6 mg/dL (8.5-10.1)
[2020-11-10 08:00] LABS: ALBUMIN 3.8 g/dl (3.4-5.0); MAGNESIUM 2.4 mg/dL (1.8-2.4)
[2020-11-10 08:04] LABS: BILIRUBIN,TOTAL 0.7 mg/dL (0.2-1); PHOSPHOROUS 5.2 mg/dL (2.5-4.9)
[2020-11-10 08:05] LABS: TOT PROT 7.3 g/dl (6.4-8.2)
[2020-11-10] MEDS ORDERED: FUROSEMIDE 40 MG/4 ML INJECTABLE VIAL ONE (10:09)
[2020-11-10] MEDS ORDERED: ASPIRIN 81 MG CHEWABLE TABLETS ONE (10:09)
[2020-11-10] MEDS: METOPROLOL TARTRATE 25 MG TABLET (FP) PO SCH ×2 (10:11→22:00)
[2020-11-10] MEDS: ASPIRIN 81 MG CHEWABLE TABLETS PO SCH (10:11)
[2020-11-10] MEDS: FUROSEMIDE 40 MG/4 ML INJECTABLE VIAL IVPUSH SCH (10:11)
[2020-11-10] MEDS: ENOXAPARIN NA (PORCINE) 100 MG/1 ML DISP.SYRIN SQ SCH (12:46)
[2020-11-10] MEDS: CLOPIDOGREL BISULFATE 75 MG TABLET (FP) PO SCH (14:53)
[2020-11-10] MEDS ORDERED: CLOPIDOGREL BISULFATE 75 MG TABLET (FP) ONE (14:53)
[2020-11-10] MEDS ORDERED: metoPROLOL SUCCINATE 25 MG TAB.SR.24H (FP) ONE (21:57)
[2020-11-11] MEDS ORDERED: ENOXAPARIN NA (PORCINE) 40 MG/0.4 ML DISP.SYRIN SQ ONE (00:21)
[2020-11-11] MEDS ORDERED: ENOXAPARIN NA (PORCINE) 100 MG/1 ML DISP.SYRIN SQ ONE ×2 (00:22→12:16)
[2020-11-11] MEDS: ENOXAPARIN NA (PORCINE) 100 MG/1 ML DISP.SYRIN SQ SCH ×2 (02:48→12:17)
[2020-11-11] MEDS ORDERED: INSULIN SLIDING SCALE (NOVOLOG) 1 VIAL SQ SCH (07:00)
[2020-11-11 07:56] VITALS: TEMP 97.4
[2020-11-11] MEDS: INSULIN SLIDING SCALE (NOVOLOG) 1 VIAL SQ SCH ×2 (08:11→11:18)
[2020-11-11] MEDS ORDERED: LISINOPRIL 20 MG TABLET PO SCH (10:00)
[2020-11-11] MEDS ORDERED: METOPROLOL TARTRATE 25 MG TABLET (FP) ONE (11:07)
[2020-11-11] MEDS ORDERED: FUROSEMIDE 40 MG/4 ML INJECTABLE VIAL ONE (11:08)
[2020-11-11] MEDS ORDERED: ASPIRIN 81 MG CHEWABLE TABLETS ONE (11:08)
[2020-11-11] MEDS ORDERED: CLOPIDOGREL BISULFATE 75 MG TABLET (FP) ONE (11:08)
[2020-11-11] MEDS ORDERED: LISINOPRIL 20 MG TABLET ONE (11:08)
[2020-11-11] MEDS: METOPROLOL TARTRATE 25 MG TABLET (FP) PO SCH (11:18)
[2020-11-11] MEDS: ASPIRIN 81 MG CHEWABLE TABLETS PO SCH (11:18)
[2020-11-11] MEDS: FUROSEMIDE 40 MG/4 ML INJECTABLE VIAL IVPUSH SCH (11:18)
[2020-11-11] MEDS: CLOPIDOGREL BISULFATE 75 MG TABLET (FP) PO SCH (11:18)
[2020-11-11 12:20] VITALS: BP 171/64; PULSE 58
== END 2020-11-11 23:14 | disposition home or self-care (01) | DRG 282 ==
LOC: JER 19:17 → JERBED 23:14
PROVIDERS: ADMIT Internal Medicine; ATTEND Internal Medicine
DX: I21.4 Non-ST elevation (NSTEMI) myocardial infarction (principal); E78.5 Hyperlipidemia, unspecified; E11.9 Type 2 diabetes mellitus without complications; I25.10 Atherosclerotic heart disease of native coronary artery without angina pectoris; Z95.5 Presence of coronary angioplasty implant and graft; K21.9 Gastro-esophageal reflux disease without esophagitis; I10 Essential (primary) hypertension; E66.9 Obesity, unspecified; Z68.34 Body mass index [BMI] 34.0-34.9, adult; R07.9 Chest pain, unspecified; I50.9 Heart failure, unspecified; L29.9 Pruritus, unspecified; R60.0 Localized edema
CPT/HCPCS: 36415; 71046-TC-FY; 80053; 82550; 82553; 82962; 83036; 83735; 83880; 84100; 84443; 84484; 85025; 85610; 85730; 93005; 93010; 93306-TC; 93970-TC; 99291; C9803; U0003

== ENCOUNTER 2021-05-05 15:07 | Emergency (ER) | payer OTHER ==
[2021-05-05 15:24] VITALS: TEMP 98; BMI 35.2
[2021-05-05] MEDS ORDERED: LACTATED RINGERS SOLUTION 1000 ML INFUS.BAG IV ONE (16:30)
[2021-05-05 17:08] LABS: BASO % 0.7 % (0-2.0); EOS % 0.8 % (0-4.5); HEMATOCRIT 47.3 % (32.4-45.2); HEMOGLOBIN 16.1 GM/dL (10.7-15.3); LYMPH % 23.9 % (8-40); MEAN CELL VOLUME 91.3 fl (80-96); MEAN PLT VOLUME 10.1 fl (7.5-11.1); MONO % 7.6 % (3.8-10.2); PLATELET COUNT 213 10^3/uL (134-434); RBC 5.18 M/mm3 (3.60-5.2); RDW 13.7 % (11.6-15.6); WHITE BLOOD COUNT 10.7 K/mm3 (4.0-10.0)
[2021-05-05 17:27] LABS: CHLORIDE 105 mmol/L (98-107); SODIUM 142 mmol/L (136-145)
[2021-05-05 17:29] LABS: CALCIUM 9.6 mg/dL (8.5-10.1); LIPASE 77 U/L (73-393)
[2021-05-05 17:30] LABS: ALBUMIN 4.2 g/dl (3.4-5.0); ANION GAP 5 MMOL/L (8-16); BLOOD UREA NITROGEN 23.6 mg/dL (7-18); CO2 32 mmol/L (21-32)
[2021-05-05 17:33] LABS: CREATININE 0.7 mg/dL (0.55-1.3); SGOT/AST 69 U/L (15-37); SGPT/ALT 67 U/L (13-61)
[2021-05-05 17:34] LABS: BILIRUBIN,TOTAL 0.5 mg/dL (0.2-1); TOT PROT 8.1 g/dl (6.4-8.2)
[2021-05-05 17:36] LABS: ALK PHOS 111 U/L (45-117)
[2021-05-05 17:37] LABS: GLUCOSE,RANDOM 48 mg/dL (74-106)
[2021-05-05 18:48] VITALS: BP 133/62; PULSE 82
== END 2021-05-05 18:46 | disposition home or self-care (01) ==
LOC: JER 15:07
DX: R19.7 Diarrhea, unspecified (principal)
CPT/HCPCS: 36415; 80053; 82962; 83690; 84484; 85025; 93005; 93010; 99284-25

== ENCOUNTER 2021-07-09 11:52 | Emergency (ER) | payer OTHER ==
[2021-07-09 12:05] VITALS: PULSE 69; TEMP 98.1; BMI 36.0
[2021-07-09 14:48] LABS: BASO % 0.6 % (0-2.0); EOS % 0.6 % (0-4.5); HEMATOCRIT 42.7 % (32.4-45.2); HEMOGLOBIN 14.7 GM/dL (10.7-15.3); LYMPH % 22.7 % (8-40); MCH 31.2 pg (25.7-33.7); MCHC 34.3 g/dl (32.0-36.0); MEAN CELL VOLUME 91.1 fl (80-96); MEAN PLT VOLUME 9.9 fl (7.5-11.1); MONO % 6.6 % (3.8-10.2); NEUT % 69.5 % (42.8-82.8); PLATELET COUNT 223 10^3/uL (134-434); RBC 4.69 M/mm3 (3.60-5.2); RDW 13.5 % (11.6-15.6); WHITE BLOOD COUNT 9.8 K/mm3 (4.0-10.0)
[2021-07-09 14:55] VITALS: BP 149/57
[2021-07-09 15:17] LABS: ALBUMIN 3.7 g/dl (3.4-5.0); BLOOD UREA NITROGEN 21.7 mg/dL (7-18)
[2021-07-09 15:20] LABS: CREATININE 0.8 mg/dL (0.55-1.3)
[2021-07-09 15:22] LABS: BILIRUBIN,TOTAL 0.4 mg/dL (0.2-1); TOT PROT 7.5 g/dl (6.4-8.2)
== END 2021-07-09 16:14 | disposition home or self-care (01) ==
LOC: JER 11:52
DX: I10 Essential (primary) hypertension (principal)
CPT/HCPCS: 36415; 80053; 82962; 85025; 93005; 93010; 99284-25

== ENCOUNTER 2021-09-07 12:19 | Observation (INO) | payer OTHER ==
[2021-09-07] MEDS ORDERED: ASPIRIN 81 MG CHEWABLE TABLETS PO ONE (13:20)
[2021-09-07] MEDS ORDERED: ASPIRIN 81 MG CHEWABLE TABLETS ONE (13:39)
[2021-09-07] MEDS ORDERED: ALPRAZolam 2 MG TABLET PO ONE (14:32)
[2021-09-07 15:07] LABS: BASO % 0.7 % (0-2.0); EOS % 0.7 % (0-4.5); HEMATOCRIT 43.7 % (32.4-45.2); LYMPH % 28.2 % (8-40); MCH 31.8 pg (25.7-33.7); MCHC 34.4 g/dl (32.0-36.0); MEAN CELL VOLUME 92.3 fl (80-96); MEAN PLT VOLUME 9.8 fl (7.5-11.1); MONO % 10.1 % (3.8-10.2); NEUT % 60.3 % (42.8-82.8); PLATELET COUNT 213 10^3/uL (134-434); RBC 4.74 M/mm3 (3.60-5.2); RDW 13.4 % (11.6-15.6); WHITE BLOOD COUNT 6.7 K/mm3 (4.0-10.0)
[2021-09-07 15:13] LABS: INR 1.22 (0.83-1.09); PROTHROMBIN TIME (PATIENT) 13.7 SEC (9.7-13.0)
[2021-09-07 15:15] LABS: ACTIVATED PTT 30.8 SECONDS (25.2-36.5); CHLORIDE 105 mmol/L (98-107); SODIUM 141 mmol/L (136-145)
[2021-09-07] MEDS ORDERED: ALPRAZolam 1 MG TABLET ONE (15:19)
[2021-09-07 15:20] LABS: ALBUMIN 3.9 g/dl (3.4-5.0); ANION GAP 6 MMOL/L (8-16); BLOOD UREA NITROGEN 19.8 mg/dL (7-18); CALCIUM 9.7 mg/dL (8.5-10.1); CO2 30 mmol/L (21-32)
[2021-09-07 15:22] LABS: GLUCOSE,RANDOM 69 mg/dL (74-106)
[2021-09-07 15:23] LABS: CREATININE 0.7 mg/dL (0.55-1.3); SGOT/AST 36 U/L (15-37); SGPT/ALT 43 U/L (13-61)
[2021-09-07 15:25] LABS: BILIRUBIN,TOTAL 0.4 mg/dL (0.2-1); TOT PROT 7.9 g/dl (6.4-8.2)
[2021-09-07 15:26] LABS: ALK PHOS 89 U/L (45-117)
[2021-09-07] MEDS ORDERED: ACETAMINOPHEN 325 MG TABLET (FP) PO PRN (17:32)
[2021-09-07] MEDS ORDERED: ALPRAZolam 0.25 MG TABLET PO PRN (17:40)
[2021-09-07] MEDS ORDERED: HEPARIN NA (PORCINE) 5,000 UNITS/ML 1ML VIAL SQ SCH (22:00)
[2021-09-07] MEDS ORDERED: METOPROLOL TARTRATE 25 MG TABLET (FP) PO SCH (22:00)
[2021-09-07] MEDS ORDERED: LISINOPRIL 20 MG TABLET ONE (23:22)
[2021-09-07] MEDS ORDERED: APIXABAN 5 MG TABLET ONE (23:22)
[2021-09-07] MEDS ORDERED: METOPROLOL TARTRATE 25 MG TABLET (FP) ONE (23:22)
[2021-09-07] MEDS: APIXABAN 5 MG TABLET PO SCH (23:41)
[2021-09-07] MEDS: LISINOPRIL 20 MG TABLET PO SCH (23:42)
[2021-09-08] MEDS: INSULIN SLIDING SCALE (NOVOLOG) 1 VIAL SQ SCH ×4 (01:33→16:48)
[2021-09-08 04:08] VITALS: BMI 34.4
[2021-09-08 08:06] LABS: BASO % 0.7 % (0-2.0); EOS % 2.8 % (0-4.5); HEMATOCRIT 40.7 % (32.4-45.2); LYMPH % 41.5 % (8-40); MCH 32.2 pg (25.7-33.7); MCHC 34.4 g/dl (32.0-36.0); MEAN CELL VOLUME 93.5 fl (80-96); MEAN PLT VOLUME 9.8 fl (7.5-11.1); PLATELET COUNT 201 10^3/uL (134-434); RBC 4.35 M/mm3 (3.60-5.2); RDW 13.2 % (11.6-15.6); WHITE BLOOD COUNT 7.1 K/mm3 (4.0-10.0)
[2021-09-08 08:40] LABS: BLOOD UREA NITROGEN 21.4 mg/dL (7-18); MAGNESIUM 2.2 mg/dL (1.8-2.4)
[2021-09-08 08:42] LABS: CREATININE 0.7 mg/dL (0.55-1.3); PHOSPHOROUS 4.3 mg/dL (2.5-4.9)
[2021-09-08] MEDS: APIXABAN 5 MG TABLET PO SCH (09:55)
[2021-09-08] MEDS: LISINOPRIL 20 MG TABLET PO SCH (09:56)
[2021-09-08] MEDS ORDERED: POTASSIUM CITRATE/CITRIC ACID 2 MEQ/ML ML PO SCH (10:00)
[2021-09-08] MEDS ORDERED: HYDROCHLOROTHIAZIDE 25 MG TABLET (FP) PO SCH (10:00)
[2021-09-08] MEDS ORDERED: ASPIRIN COATED 81 MG TABLET.EC PO SCH (10:00)
[2021-09-08] MEDS ORDERED: FAMOTIDINE 20 MG TABLET PO SCH (10:00)
[2021-09-08] MEDS ORDERED: POTASSIUM CHLORIDE TABS 10 MEQ TABLET.ER (FP) PO ONE (13:19)
[2021-09-08] MEDS ORDERED: FLU VACC QS2021-22(6MOS UP)/PF 60 MCG/0.5 ML SYRINGE IM ONE (15:00)
[2021-09-08 17:06] VITALS: BP 146/58; PULSE 51; TEMP 98.7
== END 2021-09-08 18:35 | disposition home or self-care (01) ==
LOC: JER 12:19 → JERBED 15:49 → J4S 09-08 03:26
PROVIDERS: ATTEND Internal Medicine
PROC: 3E0234Z Introduction of Serum, Toxoid and Vaccine into Muscle, Percutaneous Approach (ICD-10-PCS; principal; 2021-09-07)
DX: I11.0 Hypertensive heart disease with heart failure (principal); I20.0 Unstable angina; R11.0 Nausea; I25.2 Old myocardial infarction; F41.9 Anxiety disorder, unspecified; E11.9 Type 2 diabetes mellitus without complications; I48.91 Unspecified atrial fibrillation; Z79.01 Long term (current) use of anticoagulants; E66.9 Obesity, unspecified; Z68.34 Body mass index [BMI] 34.0-34.9, adult; B96.89 Other specified bacterial agents as the cause of diseases classified elsewhere; R07.89 Other chest pain; Z95.5 Presence of coronary angioplasty implant and graft; F17.210 Nicotine dependence, cigarettes, uncomplicated; Z88.0 Allergy status to penicillin; Z88.8 Allergy status to other drugs, medicaments and biological substances
CPT/HCPCS: 36415; 71046-TC-FY; 80048; 80053; 82550; 82553; 82962; 83735; 84100; 84484; 85025; 85610; 85730; 90686; 93005; 93010; 96372; 99285-25; C9803; G0378; U0003; U0005

== ENCOUNTER 2021-10-21 17:30 | Emergency (ER) | payer OTHER ==
[2021-10-21 18:51] VITALS: BMI 37.4
[2021-10-21 20:04] LABS: BASO % 0.5 % (0-2.0); EOS % 1.7 % (0-4.5); HEMATOCRIT 42.3 % (32.4-45.2); HEMOGLOBIN 14.3 GM/dL (10.7-15.3); LYMPH % 36.3 % (8-40); MCH 31.1 pg (25.7-33.7); MCHC 33.8 g/dl (32.0-36.0); MEAN PLT VOLUME 9.1 fl (7.5-11.1); MONO % 8.7 % (3.8-10.2); NEUT % 52.8 % (42.8-82.8); PLATELET COUNT 213 10^3/uL (134-434); RDW 13.1 % (11.6-15.6); WHITE BLOOD COUNT 9.4 K/mm3 (4.0-10.0)
[2021-10-21 20:18] LABS: PH,URINE 5.5 (5.0-8.0); URINE APPEARANCE CLEAR; URINE BILIRUBIN NEGATIVE (NEGATIVE); URINE COLOR YELLOW; URINE GLUCOSE (UA) NEGATIVE (NEGATIVE); URINE KETONE NEGATIVE (NEGATIVE); URINE LEUK ESTERASE NEGATIVE (NEGATIVE); URINE NITRITE NEGATIVE (NEGATIVE); URINE PROTEIN NEGATIVE (NEGATIVE); URINE UROBILINOGEN 0.2 mg/dL (0.2-1.0)
[2021-10-21 20:24] LABS: CHLORIDE 107 mmol/L (98-107); SODIUM 142 mmol/L (136-145)
[2021-10-21 20:26] LABS: ALBUMIN 3.7 g/dl (3.4-5.0); ANION GAP 8 MMOL/L (8-16); BLOOD UREA NITROGEN 25.3 mg/dL (7-18); CALCIUM 9.2 mg/dL (8.5-10.1); CO2 27 mmol/L (21-32); GLUCOSE,RANDOM 90 mg/dL (74-106)
[2021-10-21 20:29] LABS: SGOT/AST 26 U/L (15-37)
[2021-10-21 20:30] LABS: CREATININE 0.8 mg/dL (0.55-1.3); SGPT/ALT 44 U/L (13-61)
[2021-10-21 20:31] LABS: BILIRUBIN,TOTAL 0.3 mg/dL (0.2-1); TOT PROT 7.2 g/dl (6.4-8.2)
[2021-10-21 20:32] LABS: ALK PHOS 96 U/L (45-117)
[2021-10-21 21:12] VITALS: BP 136/78; PULSE 78; TEMP 97.9
== END 2021-10-21 21:31 | disposition home or self-care (01) ==
LOC: JER 17:30
DX: I10 Essential (primary) hypertension (principal)
CPT/HCPCS: 36415; 70450-TC; 71045-TC-FY; 80053; 81003; 82550; 84484; 85025; 87086; 93005; 93010; 99284-25

== ENCOUNTER 2021-12-01 10:37 | Inpatient (IN) | payer OTHER ==
[2021-12-01] MEDS ORDERED: FUROSEMIDE 40 MG/4 ML INJECTABLE VIAL IVPUSH ONE (11:32)
[2021-12-01] MEDS ORDERED: DEXAMETHASONE SOD PHOSPHATE 4 MG/1 ML VIAL IVPUSH ONE ×2 (11:34→14:53)
[2021-12-01] MEDS ORDERED: DEXAMETHASONE SOD PHOSPHATE 4 MG/1 ML VIAL ONE ×2 (11:49→15:49)
[2021-12-01] MEDS ORDERED: FUROSEMIDE 40 MG/4 ML INJECTABLE VIAL ONE (11:49)
[2021-12-01] MEDS ORDERED: REMDESIVIR 200 MG in SODIUM CHLORIDE 250 ML IVPB ONE (12:25)
[2021-12-01 12:49] LABS: BASO % 0.2 % (0-2.0); HEMATOCRIT 40.5 % (32.4-45.2); HEMOGLOBIN 13.7 GM/dL (10.7-15.3); LYMPH % 9.4 % (8-40); MCH 30.3 pg (25.7-33.7); MCHC 33.8 g/dl (32.0-36.0); MEAN CELL VOLUME 89.9 fl (80-96); MEAN PLT VOLUME 8.8 fl (7.5-11.1); MONO % 11.3 % (3.8-10.2); NEUT % 79.1 % (42.8-82.8); PLATELET COUNT 238 10^3/uL (134-434); RBC 4.51 M/mm3 (3.60-5.2); RDW 12.8 % (11.6-15.6); WHITE BLOOD COUNT 8.5 K/mm3 (4.0-10.0)
[2021-12-01 12:57] LABS: INR 1.35 (0.83-1.09); PROTHROMBIN TIME (PATIENT) 15.6 SEC (9.7-13.0)
[2021-12-01 13:00] LABS: ACTIVATED PTT 32.4 SECONDS (25.2-36.5)
[2021-12-01 13:02] LABS: ARTERIAL BLD GAS O2 SATURATION 91.8 % (95-98); ARTERIAL BLOOD GAS BASE EXCESS 0.1 mmol/L (-2-2); ARTERIAL BLOOD GAS PO2 60.2 mmHg (80-100); ARTERIAL BLOOD GAS pH 7.427 (7.350-7.450)
[2021-12-01 13:16] LABS: ALBUMIN 2.8 g/dl (3.4-5.0); CALCIUM 8.3 mg/dL (8.5-10.1)
[2021-12-01 13:19] LABS: BILIRUBIN,DIRECT 0.2 mg/dL (0.0-0.2); CREATININE 0.6 mg/dL (0.55-1.3)
[2021-12-01 13:21] LABS: BILIRUBIN,TOTAL 0.5 mg/dL (0.2-1); TOT PROT 6.5 g/dl (6.4-8.2)
[2021-12-01] MEDS ORDERED: ENOXAPARIN NA (PORCINE) 40 MG/0.4 ML DISP.SYRIN SQ SCH (15:00)
[2021-12-01] MEDS ORDERED: ENOXAPARIN NA (PORCINE) 40 MG/0.4 ML DISP.SYRIN SQ ONE (15:49)
[2021-12-01] MEDS ORDERED: PANTOPRAZOLE SODIUM 40 MG VIAL IVPUSH ONE (16:07)
[2021-12-01] MEDS: INSULIN SLIDING SCALE (NOVOLOG) 1 VIAL SQ SCH ×2 (16:39→21:29)
[2021-12-01 17:38] LABS: EPI CELLS 35 /uL (0-25.1); HYALINE CASTS 3 /uL (0-3.1); URINE APPEARANCE TURBID; URINE BACTERIA 3545 /uL (0-1359); URINE BILIRUBIN NEGATIVE (NEGATIVE); URINE COLOR YELLOW; URINE GLUCOSE (UA) NEGATIVE (NEGATIVE); URINE KETONE NEGATIVE (NEGATIVE); URINE LEUK ESTERASE 3+ (NEGATIVE); URINE NITRITE NEGATIVE (NEGATIVE); URINE PROTEIN TRACE (NEGATIVE); URINE RBC 96.6 /uL (0-23.9); URINE UROBILINOGEN 0.2 mg/dL (0.2-1.0); URINE WBC 24 /uL (0-25.8)
[2021-12-01] MEDS ORDERED: SERTRALINE HCL 50 MG TABLET (FP) PO ONE (18:09)
[2021-12-01] MEDS ORDERED: LORazepam 2 MG/ML SDV VIAL IVPUSH ONE (20:15)
[2021-12-01] MEDS: APIXABAN 5 MG TABLET PO SCH (21:22)
[2021-12-01] MEDS: CHLORHEXIDINE GLUCONATE 4% CLEANSER FOR DECOLONIZATION TP SCH (21:22)
[2021-12-01] MEDS: MUPIROCIN 2% TOPICAL OINTMENT FOR DECOLONIZATION NS SCH (21:23)
[2021-12-01] MEDS ORDERED: APIXABAN 5 MG TABLET PO SCH (22:00)
[2021-12-02] MEDS: INSULIN SLIDING SCALE (NOVOLOG) 1 VIAL SQ SCH ×4 (06:39→21:30)
[2021-12-02 06:54] LABS: BASO % 0.1 % (0-2.0); HEMOGLOBIN 14.2 GM/dL (10.7-15.3); LYMPH % 13.6 % (8-40); MCH 30.4 pg (25.7-33.7); MCHC 33.7 g/dl (32.0-36.0); MEAN CELL VOLUME 90.2 fl (80-96); MEAN PLT VOLUME 8.3 fl (7.5-11.1); MONO % 15.1 % (3.8-10.2); NEUT % 71.2 % (42.8-82.8); PLATELET COUNT 256 10^3/uL (134-434); RBC 4.66 M/mm3 (3.60-5.2); RDW 12.6 % (11.6-15.6); WHITE BLOOD COUNT 7.3 K/mm3 (4.0-10.0)
[2021-12-02 07:16] LABS: CALCIUM 8.6 mg/dL (8.5-10.1)
[2021-12-02 07:17] LABS: ALBUMIN 2.7 g/dl (3.4-5.0); BLOOD UREA NITROGEN 30.3 mg/dL (7-18); MAGNESIUM 2.7 mg/dL (1.8-2.4)
[2021-12-02 07:20] LABS: CREATININE 0.8 mg/dL (0.55-1.3); PHOSPHOROUS 5.6 mg/dL (2.5-4.9)
[2021-12-02 07:21] LABS: BILIRUBIN,TOTAL 0.4 mg/dL (0.2-1); TOT PROT 6.6 g/dl (6.4-8.2)
[2021-12-02] MEDS ORDERED: DEXAMETHASONE SOD PHOSPHATE 10 MG/1 ML VIAL ONE (09:03)
[2021-12-02] MEDS: MUPIROCIN 2% TOPICAL OINTMENT FOR DECOLONIZATION NS SCH ×2 (09:05→22:34)
[2021-12-02] MEDS: SERTRALINE HCL 50 MG TABLET (FP) PO SCH (09:05)
[2021-12-02] MEDS: APIXABAN 5 MG TABLET PO SCH ×2 (09:05→21:22)
[2021-12-02] MEDS: DEXAMETHASONE SOD PHOSPHATE 10 MG/1 ML VIAL IVPUSH SCH (09:05)
[2021-12-02] MEDS: LOSARTAN POTASSIUM 50 MG TABLET PO SCH (09:09)
[2021-12-02 09:15] LABS: ARTERIAL BLD GAS O2 SATURATION 96.6 % (95-98); ARTERIAL BLOOD GAS BASE EXCESS 0.6 mmol/L (-2-2); ARTERIAL BLOOD GAS PO2 84.3 mmHg (80-100); ARTERIAL BLOOD GAS pH 7.429 (7.350-7.450)
[2021-12-02 09:16] LABS: ALLENS TEST POSITIVE; VENT MODE S/T; VENT RATE 12
[2021-12-02] MEDS ORDERED: AZTREONAM 1 GM in DEXTROSE 5%-WATER - 50 ML IVPB SCH (12:30)
[2021-12-02] MEDS ORDERED: AZTREONAM 1 GM VIAL (RESTRICTED TO ID) ONE ×2 (13:11→16:25)
[2021-12-02] MEDS ORDERED: DEXTROSE 5%-WATER - 50 ML IVPB ONE ×2 (13:11→16:25)
[2021-12-02] MEDS: FAMOTIDINE 20 MG/50 ML IVPB 20 MG/50 ML MG IVPB SCH ×2 (13:23→21:23)
[2021-12-02] MEDS: REMDESIVIR 100 MG in SODIUM CHLORIDE 250 ML IVPB SCH (14:41)
[2021-12-02] MEDS: LACTOBACILLUS ACIDOPHILUS 1 TABLET PO SCH (14:41)
[2021-12-02] MEDS: ALPRAZolam 0.25 MG TABLET PO PRN (17:44)
[2021-12-02] MEDS: AZTREONAM 1 GM in DEXTROSE 5%-WATER - 50 ML IVPB SCH (17:54)
[2021-12-02] MEDS ORDERED: LORazepam 2 MG/ML SDV VIAL IVPUSH ONE (20:55)
[2021-12-02] MEDS: CHLORHEXIDINE GLUCONATE 4% CLEANSER FOR DECOLONIZATION TP SCH (21:22)
[2021-12-03] MEDS ORDERED: AZTREONAM 1 GM VIAL (RESTRICTED TO ID) ONE ×4 (00:01→23:48)
[2021-12-03] MEDS ORDERED: DEXTROSE 5%-WATER - 50 ML IVPB ONE ×4 (00:01→23:48)
[2021-12-03] MEDS: AZTREONAM 1 GM in DEXTROSE 5%-WATER - 50 ML IVPB SCH ×3 (02:31→17:59)
[2021-12-03] MEDS: INSULIN SLIDING SCALE (NOVOLOG) 1 VIAL SQ SCH ×4 (07:20→21:57)
[2021-12-03 07:46] LABS: HEMATOCRIT 41.8 % (32.4-45.2); HEMOGLOBIN 14.3 GM/dL (10.7-15.3); LYMPH % 7.1 % (8-40); MCHC 34.1 g/dl (32.0-36.0); MEAN CELL VOLUME 90.7 fl (80-96); MEAN PLT VOLUME 7.6 fl (7.5-11.1); MONO % 12.9 % (3.8-10.2); PLATELET COUNT 313 10^3/uL (134-434); RBC 4.61 M/mm3 (3.60-5.2); WHITE BLOOD COUNT 12.4 K/mm3 (4.0-10.0)
[2021-12-03 08:16] LABS: ALBUMIN 2.6 g/dl (3.4-5.0); BLOOD UREA NITROGEN 35.6 mg/dL (7-18); CALCIUM 8.6 mg/dL (8.5-10.1); MAGNESIUM 2.6 mg/dL (1.8-2.4)
[2021-12-03 08:19] LABS: CREATININE 0.9 mg/dL (0.55-1.3); PHOSPHOROUS 4.1 mg/dL (2.5-4.9)
[2021-12-03 08:20] LABS: BILIRUBIN,TOTAL 0.5 mg/dL (0.2-1); TOT PROT 6.5 g/dl (6.4-8.2)
[2021-12-03] MEDS: APIXABAN 5 MG TABLET PO SCH ×2 (09:51→21:28)
[2021-12-03] MEDS: LOSARTAN POTASSIUM 50 MG TABLET PO SCH (09:51)
[2021-12-03] MEDS: LACTOBACILLUS ACIDOPHILUS 1 TABLET PO SCH (09:51)
[2021-12-03] MEDS: ALPRAZolam 0.25 MG TABLET PO PRN ×2 (09:51→20:37)
[2021-12-03] MEDS: DEXAMETHASONE SOD PHOSPHATE 10 MG/1 ML VIAL IVPUSH SCH (09:51)
[2021-12-03] MEDS: SERTRALINE HCL 50 MG TABLET (FP) PO SCH (09:51)
[2021-12-03] MEDS: FAMOTIDINE 20 MG/50 ML IVPB 20 MG/50 ML MG IVPB SCH ×2 (09:52→21:28)
[2021-12-03] MEDS: MUPIROCIN 2% TOPICAL OINTMENT FOR DECOLONIZATION NS SCH ×2 (09:52→21:28)
[2021-12-03] MEDS ORDERED: PANTOPRAZOLE SODIUM 40 MG VIAL IVPUSH SCH (10:00)
[2021-12-03] MEDS: REMDESIVIR 100 MG in SODIUM CHLORIDE 250 ML IVPB SCH (14:35)
[2021-12-03] MEDS: CHLORHEXIDINE GLUCONATE 4% CLEANSER FOR DECOLONIZATION TP SCH (21:28)
[2021-12-03] MEDS ORDERED: PATIENT'S OWN MEDICATION (NON-FORMULARY) (Evolocumab [Repatha Sureclick] 140 MG/ML Pen.Inj SQ SCH (21:30)
[2021-12-03] MEDS ORDERED: AZTREONAM 1 GM in DEXTROSE 5%-WATER - 50 ML IVPB SCH (22:00)
[2021-12-03] MEDS ORDERED: hydrALAZINE HCL 20 MG/ML VIAL IVPUSH ONE (22:08)
[2021-12-04] MEDS: AZTREONAM 1 GM in DEXTROSE 5%-WATER - 50 ML IVPB SCH ×2 (02:41→09:11)
[2021-12-04] MEDS: ALPRAZolam 0.25 MG TABLET PO PRN ×3 (04:15→19:58)
[2021-12-04] MEDS: INSULIN SLIDING SCALE (NOVOLOG) 1 VIAL SQ SCH ×4 (06:09→21:30)
[2021-12-04] MEDS: ACETAMINOPHEN 325 MG TABLET (FP) PO PRN (06:39)
[2021-12-04 08:08] LABS: BASO % 0.1 % (0-2.0); EOS % 0.1 % (0-4.5); HEMATOCRIT 44.2 % (32.4-45.2); LYMPH % 8.4 % (8-40); MCH 30.7 pg (25.7-33.7); MCHC 33.8 g/dl (32.0-36.0); MEAN CELL VOLUME 90.8 fl (80-96); MEAN PLT VOLUME 7.8 fl (7.5-11.1); MONO % 14.1 % (3.8-10.2); NEUT % 77.3 % (42.8-82.8); PLATELET COUNT 358 10^3/uL (134-434); RBC 4.87 M/mm3 (3.60-5.2); RDW 12.8 % (11.6-15.6); WHITE BLOOD COUNT 13.6 K/mm3 (4.0-10.0)
[2021-12-04] MEDS ORDERED: AZTREONAM 1 GM VIAL (RESTRICTED TO ID) ONE (08:34)
[2021-12-04] MEDS ORDERED: DEXTROSE 5%-WATER - 50 ML IVPB ONE ×2 (08:34→13:00)
[2021-12-04 08:40] LABS: ALBUMIN 2.7 g/dl (3.4-5.0); CALCIUM 8.7 mg/dL (8.5-10.1)
[2021-12-04 08:41] LABS: MAGNESIUM 2.4 mg/dL (1.8-2.4)
[2021-12-04 08:42] LABS: CREATININE 0.8 mg/dL (0.55-1.3); PHOSPHOROUS 3.5 mg/dL (2.5-4.9)
[2021-12-04 08:44] LABS: BILIRUBIN,TOTAL 0.7 mg/dL (0.2-1); TOT PROT 6.7 g/dl (6.4-8.2)
[2021-12-04] MEDS: FAMOTIDINE 20 MG/50 ML IVPB 20 MG/50 ML MG IVPB SCH ×2 (09:11→21:29)
[2021-12-04] MEDS: LACTOBACILLUS ACIDOPHILUS 1 TABLET PO SCH (09:11)
[2021-12-04] MEDS: LOSARTAN POTASSIUM 50 MG TABLET PO SCH (09:11)
[2021-12-04] MEDS: SERTRALINE HCL 50 MG TABLET (FP) PO SCH (09:12)
[2021-12-04] MEDS: DEXAMETHASONE SOD PHOSPHATE 10 MG/1 ML VIAL IVPUSH SCH (09:12)
[2021-12-04] MEDS: MUPIROCIN 2% TOPICAL OINTMENT FOR DECOLONIZATION NS SCH ×2 (09:12→21:29)
[2021-12-04] MEDS: APIXABAN 5 MG TABLET PO SCH ×2 (09:12→21:29)
[2021-12-04] MEDS ORDERED: EVOLOCUMAB 140 MG SQ SCH (10:00)
[2021-12-04] MEDS ORDERED: TOCILIZUMAB (ACTEMRA) 200 MG/10 ML VIAL IVPB ONE (11:15)
[2021-12-04] MEDS ORDERED: CEFTRIAXONE 1 GM in DEXTROSE 5%-WATER - 50 ML IVPB SCH (12:00)
[2021-12-04] MEDS ORDERED: cefTRIAXone SODIUM 1 GM VIAL ONE (13:00)
[2021-12-04] MEDS ORDERED: TOCILIZUMAB 800 MG in SODIUM CHLORIDE 60 ML IVPB ONE (13:30)
[2021-12-04] MEDS ORDERED: PIPERACILLIN/TAZOB 4.5 GM 4.5 GM in DEXTROSE 5%-WATER 100 ML IVPB SCH ×2 (15:00→15:15)
[2021-12-04] MEDS: REMDESIVIR 100 MG in SODIUM CHLORIDE 250 ML IVPB SCH (15:00)
[2021-12-04] MEDS ORDERED: hydrALAZINE HCL 20 MG/ML VIAL IVPUSH ONE ×2 (18:59→22:49)
[2021-12-04] MEDS: CHLORHEXIDINE GLUCONATE 4% CLEANSER FOR DECOLONIZATION TP SCH (21:29)
[2021-12-05] MEDS: ALPRAZolam 0.25 MG TABLET PO PRN ×3 (03:00→22:15)
[2021-12-05] MEDS ORDERED: hydrALAZINE HCL 20 MG/ML VIAL IVPUSH ONE (03:08)
[2021-12-05] MEDS ORDERED: hydrALAZINE HCL 20 MG/ML VIAL IVPUSH PRN (03:14)
[2021-12-05] MEDS: INSULIN SLIDING SCALE (NOVOLOG) 1 VIAL SQ SCH ×4 (06:38→23:00)
[2021-12-05 08:08] LABS: HEMATOCRIT 44.9 % (32.4-45.2); HEMOGLOBIN 15.1 GM/dL (10.7-15.3); MCH 30.5 pg (25.7-33.7); MCHC 33.6 g/dl (32.0-36.0); MEAN CELL VOLUME 90.8 fl (80-96); MEAN PLT VOLUME 8.1 fl (7.5-11.1); PLATELET COUNT 387 10^3/uL (134-434); RBC 4.95 M/mm3 (3.60-5.2); RDW 12.8 % (11.6-15.6); WHITE BLOOD COUNT 12.5 K/mm3 (4.0-10.0)
[2021-12-05] MEDS: DEXMEDETOMIDINE IN 0.9 % NACL 400 MCG/100 ML VIAL IVPB SCH (08:12)
[2021-12-05 08:30] LABS: CALCIUM 8.9 mg/dL (8.5-10.1)
[2021-12-05 08:31] LABS: BLOOD UREA NITROGEN 28.2 mg/dL (7-18); MAGNESIUM 2.2 mg/dL (1.8-2.4)
[2021-12-05 08:34] LABS: CREATININE 0.7 mg/dL (0.55-1.3); PHOSPHOROUS 3.9 mg/dL (2.5-4.9)
[2021-12-05] MEDS ORDERED: FUROSEMIDE 40 MG/4 ML INJECTABLE VIAL IVPUSH ONE (08:54)
[2021-12-05] MEDS ORDERED: cefTRIAXone SODIUM 1 GM VIAL ONE (10:00)
[2021-12-05] MEDS ORDERED: DEXTROSE 5%-WATER - 50 ML IVPB ONE (10:01)
[2021-12-05] MEDS: DEXAMETHASONE SOD PHOSPHATE 10 MG/1 ML VIAL IVPUSH SCH (10:20)
[2021-12-05] MEDS: APIXABAN 5 MG TABLET PO SCH ×2 (10:20→22:15)
[2021-12-05] MEDS: LOSARTAN POTASSIUM 50 MG TABLET PO SCH (10:21)
[2021-12-05] MEDS: FAMOTIDINE 20 MG/50 ML IVPB 20 MG/50 ML MG IVPB SCH ×2 (10:21→22:15)
[2021-12-05] MEDS: LACTOBACILLUS ACIDOPHILUS 1 TABLET PO SCH (10:22)
[2021-12-05] MEDS: MUPIROCIN 2% TOPICAL OINTMENT FOR DECOLONIZATION NS SCH ×2 (10:22→22:15)
[2021-12-05] MEDS: SERTRALINE HCL 50 MG TABLET (FP) PO SCH (10:39)
[2021-12-05] MEDS: CEFTRIAXONE 1 GM in DEXTROSE 5%-WATER - 50 ML IVPB SCH (12:23)
[2021-12-05] MEDS ORDERED: REMDESIVIR 100 MG in SODIUM CHLORIDE 250 ML IVPB ONE (17:00)
[2021-12-05] MEDS: CHLORHEXIDINE GLUCONATE 4% CLEANSER FOR DECOLONIZATION TP SCH (22:15)
[2021-12-06] MEDS: INSULIN SLIDING SCALE (NOVOLOG) 1 VIAL SQ SCH ×4 (07:24→22:24)
[2021-12-06 07:59] LABS: HEMATOCRIT 43.4 % (32.4-45.2); HEMOGLOBIN 14.5 GM/dL (10.7-15.3); MCH 30.5 pg (25.7-33.7); MCHC 33.5 g/dl (32.0-36.0); MEAN CELL VOLUME 91.1 fl (80-96); MEAN PLT VOLUME 8.2 fl (7.5-11.1); PLATELET COUNT 287 10^3/uL (134-434); RBC 4.76 M/mm3 (3.60-5.2); RDW 12.9 % (11.6-15.6)
[2021-12-06 08:09] LABS: CALCIUM 8.9 mg/dL (8.5-10.1)
[2021-12-06 08:10] LABS: BLOOD UREA NITROGEN 39.2 mg/dL (7-18); MAGNESIUM 2.6 mg/dL (1.8-2.4)
[2021-12-06 08:13] LABS: CREATININE 0.7 mg/dL (0.55-1.3); PHOSPHOROUS 4.2 mg/dL (2.5-4.9)
[2021-12-06] MEDS ORDERED: DEXTROSE 5%-WATER - 50 ML IVPB ONE (09:11)
[2021-12-06] MEDS ORDERED: cefTRIAXone SODIUM 1 GM VIAL ONE (09:11)
[2021-12-06] MEDS: FAMOTIDINE 20 MG/50 ML IVPB 20 MG/50 ML MG IVPB SCH ×2 (09:38→22:15)
[2021-12-06] MEDS: CEFTRIAXONE 1 GM in DEXTROSE 5%-WATER - 50 ML IVPB SCH (09:38)
[2021-12-06] MEDS: DEXAMETHASONE SOD PHOSPHATE 10 MG/1 ML VIAL IVPUSH SCH (09:39)
[2021-12-06] MEDS: APIXABAN 5 MG TABLET PO SCH ×2 (09:39→22:15)
[2021-12-06] MEDS: ACETAMINOPHEN 325 MG TABLET (FP) PO PRN (09:39)
[2021-12-06] MEDS: ALPRAZolam 0.25 MG TABLET PO PRN ×2 (09:40→17:41)
[2021-12-06] MEDS: LACTOBACILLUS ACIDOPHILUS 1 TABLET PO SCH (09:41)
[2021-12-06] MEDS: LOSARTAN POTASSIUM 50 MG TABLET PO SCH (09:41)
[2021-12-06] MEDS: DEXMEDETOMIDINE IN 0.9 % NACL 400 MCG/100 ML VIAL IVPB SCH ×2 (09:41→10:16)
[2021-12-06] MEDS: SERTRALINE HCL 50 MG TABLET (FP) PO SCH (09:41)
[2021-12-06] MEDS: MUPIROCIN 2% TOPICAL OINTMENT FOR DECOLONIZATION NS SCH (09:42)
[2021-12-06] MEDS ORDERED: morphine SULFATE 4 MG/ML VIAL IVPUSH PRN (10:19)
[2021-12-06] MEDS ORDERED: REMDESIVIR 100 MG in SODIUM CHLORIDE 250 ML IVPB SCH (14:00)
[2021-12-06] MEDS: CHLORHEXIDINE GLUCONATE 4% CLEANSER FOR DECOLONIZATION TP SCH (22:15)
[2021-12-07] MEDS: DEXMEDETOMIDINE IN 0.9 % NACL 400 MCG/100 ML VIAL IVPB SCH (02:28)
[2021-12-07] MEDS: ALPRAZolam 0.25 MG TABLET PO PRN ×3 (03:18→20:55)
[2021-12-07] MEDS: ACETAMINOPHEN 325 MG TABLET (FP) PO PRN (03:18)
[2021-12-07] MEDS: INSULIN SLIDING SCALE (NOVOLOG) 1 VIAL SQ SCH ×4 (06:34→21:18)
[2021-12-07 07:17] LABS: HEMATOCRIT 45.3 % (32.4-45.2); HEMOGLOBIN 14.9 GM/dL (10.7-15.3); MCH 30.2 pg (25.7-33.7); MCHC 32.9 g/dl (32.0-36.0); MEAN PLT VOLUME 8.5 fl (7.5-11.1); PLATELET COUNT 256 10^3/uL (134-434); RBC 4.93 M/mm3 (3.60-5.2); RDW 12.8 % (11.6-15.6); WHITE BLOOD COUNT 12.6 K/mm3 (4.0-10.0)
[2021-12-07 07:43] LABS: ALBUMIN 2.4 g/dl (3.4-5.0); BLOOD UREA NITROGEN 38.9 mg/dL (7-18); CALCIUM 8.7 mg/dL (8.5-10.1); MAGNESIUM 2.3 mg/dL (1.8-2.4)
[2021-12-07 07:46] LABS: CREATININE 0.8 mg/dL (0.55-1.3); PHOSPHOROUS 4.8 mg/dL (2.5-4.9)
[2021-12-07 07:47] LABS: BILIRUBIN,TOTAL 0.4 mg/dL (0.2-1); TOT PROT 6.1 g/dl (6.4-8.2)
[2021-12-07] MEDS ORDERED: cefTRIAXone SODIUM 1 GM VIAL ONE (10:31)
[2021-12-07] MEDS ORDERED: DEXTROSE 5%-WATER - 50 ML IVPB ONE (10:31)
[2021-12-07] MEDS: CEFTRIAXONE 1 GM in DEXTROSE 5%-WATER - 50 ML IVPB SCH (11:00)
[2021-12-07] MEDS: SERTRALINE HCL 50 MG TABLET (FP) PO SCH (11:00)
[2021-12-07] MEDS: LACTOBACILLUS ACIDOPHILUS 1 TABLET PO SCH (11:00)
[2021-12-07] MEDS: APIXABAN 5 MG TABLET PO SCH ×2 (11:00→21:18)
[2021-12-07] MEDS: DEXAMETHASONE SOD PHOSPHATE 10 MG/1 ML VIAL IVPUSH SCH (11:00)
[2021-12-07] MEDS: FAMOTIDINE 20 MG/50 ML IVPB 20 MG/50 ML MG IVPB SCH ×2 (11:00→21:18)
[2021-12-07] MEDS: LOSARTAN POTASSIUM 50 MG TABLET PO SCH (11:00)
[2021-12-07 12:40] VITALS: BMI 33.8
[2021-12-07] MEDS: CHLORHEXIDINE GLUCONATE 4% CLEANSER FOR DECOLONIZATION TP SCH (21:18)
[2021-12-08] MEDS: INSULIN SLIDING SCALE (NOVOLOG) 1 VIAL SQ SCH ×4 (06:53→21:49)
[2021-12-08 07:33] LABS: HEMATOCRIT 44.3 % (32.4-45.2); HEMOGLOBIN 14.8 GM/dL (10.7-15.3); MCH 30.6 pg (25.7-33.7); MCHC 33.4 g/dl (32.0-36.0); MEAN CELL VOLUME 91.5 fl (80-96); MEAN PLT VOLUME 8.4 fl (7.5-11.1); PLATELET COUNT 222 10^3/uL (134-434); RBC 4.85 M/mm3 (3.60-5.2); RDW 12.9 % (11.6-15.6); WHITE BLOOD COUNT 15.8 K/mm3 (4.0-10.0)
[2021-12-08 08:08] LABS: CALCIUM 8.6 mg/dL (8.5-10.1)
[2021-12-08 08:10] LABS: BLOOD UREA NITROGEN 32.7 mg/dL (7-18); MAGNESIUM 2.4 mg/dL (1.8-2.4)
[2021-12-08 08:13] LABS: CREATININE 0.9 mg/dL (0.55-1.3); PHOSPHOROUS 4.6 mg/dL (2.5-4.9)
[2021-12-08] MEDS: LOSARTAN POTASSIUM 50 MG TABLET PO SCH (09:03)
[2021-12-08] MEDS: SERTRALINE HCL 50 MG TABLET (FP) PO SCH (09:03)
[2021-12-08] MEDS: LACTOBACILLUS ACIDOPHILUS 1 TABLET PO SCH (09:03)
[2021-12-08] MEDS ORDERED: METOCLOPRAMIDE HCL INJECTION 10 MG/2 ML VIAL IVPUSH ONE (09:30)
[2021-12-08] MEDS ORDERED: DEXAMETHASONE SOD PHOSPHATE 10 MG/1 ML VIAL IVPUSH SCH (10:00)
[2021-12-08] MEDS ORDERED: CEFTRIAXONE 1 GM in DEXTROSE 5%-WATER - 50 ML IVPB SCH (10:00)
[2021-12-08] MEDS: APIXABAN 5 MG TABLET PO SCH ×2 (10:21→21:13)
[2021-12-08] MEDS ORDERED: cefTRIAXone SODIUM 1 GM VIAL ONE (11:00)
[2021-12-08] MEDS: FAMOTIDINE 20 MG/50 ML IVPB 20 MG/50 ML MG IVPB SCH ×2 (11:00→21:14)
[2021-12-08] MEDS ORDERED: DEXTROSE 5%-WATER - 50 ML IVPB ONE (11:00)
[2021-12-08] MEDS ORDERED: TOCILIZUMAB (ACTEMRA) 200 MG/10 ML VIAL IVPB ONE (20:49)
[2021-12-08] MEDS ORDERED: hydrALAZINE HCL 20 MG/ML VIAL IVPUSH PRN (20:49)
[2021-12-08] MEDS: ALPRAZolam 0.25 MG TABLET PO PRN (21:13)
[2021-12-08] MEDS: ACETAMINOPHEN 325 MG TABLET (FP) PO PRN (21:14)
[2021-12-08] MEDS ORDERED: CHLORHEXIDINE GLUCONATE 4% CLEANSER FOR DECOLONIZATION TP SCH (22:00)
[2021-12-09] MEDS: INSULIN SLIDING SCALE (NOVOLOG) 1 VIAL SQ SCH ×4 (06:14→21:58)
[2021-12-09] MEDS ORDERED: cefTRIAXone SODIUM 1 GM VIAL ONE (08:52)
[2021-12-09] MEDS ORDERED: DEXTROSE 5%-WATER - 50 ML IVPB ONE (08:52)
[2021-12-09] MEDS: DEXAMETHASONE SOD PHOSPHATE 10 MG/1 ML VIAL IVPUSH SCH (09:04)
[2021-12-09] MEDS: LACTOBACILLUS ACIDOPHILUS 1 TABLET PO SCH (09:05)
[2021-12-09] MEDS: SERTRALINE HCL 50 MG TABLET (FP) PO SCH (09:05)
[2021-12-09] MEDS: APIXABAN 5 MG TABLET PO SCH ×2 (09:05→21:53)
[2021-12-09] MEDS: LOSARTAN POTASSIUM 50 MG TABLET PO SCH (09:05)
[2021-12-09] MEDS: ALPRAZolam 0.25 MG TABLET PO PRN (09:07)
[2021-12-09] MEDS ORDERED: CEFTRIAXONE 1 GM in DEXTROSE 5%-WATER - 50 ML IVPB SCH (10:00)
[2021-12-09] MEDS: FAMOTIDINE 20 MG/50 ML IVPB 20 MG/50 ML MG IVPB SCH ×2 (10:10→21:53)
[2021-12-09 13:01] LABS: BASO % 0.1 % (0-2.0); EOS % 0.1 % (0-4.5); HEMATOCRIT 45.8 % (32.4-45.2); HEMOGLOBIN 14.9 GM/dL (10.7-15.3); LYMPH % 2.9 % (8-40); MCHC 32.5 g/dl (32.0-36.0); MEAN CELL VOLUME 92.5 fl (80-96); MEAN PLT VOLUME 9.9 fl (7.5-11.1); MONO % 1.2 % (3.8-10.2); NEUT % 95.7 % (42.8-82.8); PLATELET COUNT 229 10^3/uL (134-434); RBC 4.95 M/mm3 (3.60-5.2); RDW 12.8 % (11.6-15.6)
[2021-12-09 13:26] LABS: ALBUMIN 2.8 g/dl (3.4-5.0); BLOOD UREA NITROGEN 38.7 mg/dL (7-18); CALCIUM 8.9 mg/dL (8.5-10.1); MAGNESIUM 2.4 mg/dL (1.8-2.4)
[2021-12-09 13:29] LABS: CREATININE 0.8 mg/dL (0.55-1.3)
[2021-12-09 13:31] LABS: BILIRUBIN,TOTAL 0.7 mg/dL (0.2-1)
[2021-12-09 13:40] LABS: ANISOCYTOSIS 0; HELMET CELLS 0; HOWELL-JOLLY BODIES 0; MACROCYTOSIS 0; OVALOCYTE 0; PLATELET ESTIMATE NORMAL; ROULEAU 0; SICKELED CELLS 0; TARGET CELLS 0; TEAR DROP CELLS 0; TOXIC GRANULATION 0
[2021-12-09] MEDS: ACETAMINOPHEN 325 MG TABLET (FP) PO PRN (14:42)
[2021-12-09] MEDS ORDERED: NAPHAZOLINE 0.1% OPHTHALMIC SOLUTION 15 ML BOTTLE OU SCH (18:00)
[2021-12-09] MEDS: NAPHAZOLINE/PHENIRAMINE OPHTHALMIC 15 ML BOTTLE OU SCH (21:53)
[2021-12-09] MEDS: ALPRAZolam 1 MG TABLET PO SCH (21:53)
[2021-12-10] MEDS: PHENOL 177 ML SPRAY BOTTLE MM PRN ×2 (00:19→22:28)
[2021-12-10] MEDS: NAPHAZOLINE/PHENIRAMINE OPHTHALMIC 15 ML BOTTLE OU SCH ×5 (05:41→22:13)
[2021-12-10] MEDS: ALPRAZolam 1 MG TABLET PO SCH ×3 (05:41→22:13)
[2021-12-10] MEDS: INSULIN SLIDING SCALE (NOVOLOG) 1 VIAL SQ SCH ×4 (06:06→22:14)
[2021-12-10 07:49] LABS: BASO % 0.1 % (0-2.0); EOS % 0.7 % (0-4.5); HEMATOCRIT 47.7 % (32.4-45.2); HEMOGLOBIN 15.5 GM/dL (10.7-15.3); LYMPH % 8.6 % (8-40); MCH 30.3 pg (25.7-33.7); MCHC 32.4 g/dl (32.0-36.0); MEAN CELL VOLUME 93.3 fl (80-96); MEAN PLT VOLUME 10.3 fl (7.5-11.1); NEUT % 84.6 % (42.8-82.8); PLATELET COUNT 221 10^3/uL (134-434); RBC 5.11 M/mm3 (3.60-5.2); RDW 13.2 % (11.6-15.6)
[2021-12-10 08:08] LABS: BLOOD UREA NITROGEN 30.7 mg/dL (7-18); MAGNESIUM 2.5 mg/dL (1.8-2.4)
[2021-12-10 08:10] LABS: CREATININE 0.8 mg/dL (0.55-1.3)
[2021-12-10 08:11] LABS: TOT PROT 6.3 g/dl (6.4-8.2)
[2021-12-10 08:12] LABS: BILIRUBIN,TOTAL 0.8 mg/dL (0.2-1)
[2021-12-10 08:26] LABS: LACTIC ACID 2.8 mmol/L (0.4-2.0)
[2021-12-10 09:11] LABS: ANISOCYTOSIS 1+; MACROCYTOSIS 0; PLATELET ESTIMATE NORMAL; TEAR DROP CELLS 1+
[2021-12-10] MEDS: LOSARTAN POTASSIUM 50 MG TABLET PO SCH (09:11)
[2021-12-10] MEDS: SERTRALINE HCL 50 MG TABLET (FP) PO SCH (09:11)
[2021-12-10] MEDS: APIXABAN 5 MG TABLET PO SCH ×2 (09:12→22:12)
[2021-12-10] MEDS: DEXAMETHASONE SOD PHOSPHATE 10 MG/1 ML VIAL IVPUSH SCH (09:12)
[2021-12-10] MEDS: FAMOTIDINE 20 MG/50 ML IVPB 20 MG/50 ML MG IVPB SCH ×2 (09:12→22:12)
[2021-12-10] MEDS: ACETAMINOPHEN 325 MG TABLET (FP) PO PRN (09:12)
[2021-12-10] MEDS: LACTOBACILLUS ACIDOPHILUS 1 TABLET PO SCH (09:12)
[2021-12-11] MEDS: ALPRAZolam 1 MG TABLET PO SCH ×3 (05:45→21:27)
[2021-12-11] MEDS: INSULIN SLIDING SCALE (NOVOLOG) 1 VIAL SQ SCH ×4 (06:55→21:37)
[2021-12-11] MEDS: NAPHAZOLINE/PHENIRAMINE OPHTHALMIC 15 ML BOTTLE OU SCH ×5 (06:55→21:28)
[2021-12-11 09:17] LABS: HEMATOCRIT 45.3 % (32.4-45.2); HEMOGLOBIN 14.5 GM/dL (10.7-15.3); MCH 29.9 pg (25.7-33.7); MCHC 32.1 g/dl (32.0-36.0); MEAN CELL VOLUME 93.2 fl (80-96); MEAN PLT VOLUME 10.8 fl (7.5-11.1); PLATELET COUNT 226 10^3/uL (134-434); RBC 4.86 M/mm3 (3.60-5.2); RDW 12.9 % (11.6-15.6); WHITE BLOOD COUNT 21.5 K/mm3 (4.0-10.0)
[2021-12-11 09:59] LABS: CALCIUM 8.6 mg/dL (8.5-10.1)
[2021-12-11 10:00] LABS: ALBUMIN 2.9 g/dl (3.4-5.0); BLOOD UREA NITROGEN 28.7 mg/dL (7-18)
[2021-12-11 10:01] LABS: CREATININE 0.8 mg/dL (0.55-1.3)
[2021-12-11 10:03] LABS: BILIRUBIN,TOTAL 0.9 mg/dL (0.2-1)
[2021-12-11] MEDS: SERTRALINE HCL 50 MG TABLET (FP) PO SCH (10:08)
[2021-12-11] MEDS: FAMOTIDINE 20 MG/50 ML IVPB 20 MG/50 ML MG IVPB SCH ×2 (10:08→21:26)
[2021-12-11] MEDS: LOSARTAN POTASSIUM 50 MG TABLET PO SCH (10:08)
[2021-12-11] MEDS: APIXABAN 5 MG TABLET PO SCH ×2 (10:08→21:28)
[2021-12-11] MEDS: LACTOBACILLUS ACIDOPHILUS 1 TABLET PO SCH (10:08)
[2021-12-11 10:20] LABS: ERYTHROCYTE SEDIMENTATION RATE 2 mm/hr (0-30)
[2021-12-11] MEDS: DEXAMETHASONE SOD PHOSPHATE 10 MG/1 ML VIAL IVPUSH SCH (11:14)
[2021-12-11] MEDS ORDERED: amLODIPine BESYLATE 2.5 MG TABLET (FP) PO ONE (20:36)
[2021-12-11] MEDS: ACETAMINOPHEN 325 MG TABLET (FP) PO PRN (21:28)
[2021-12-11] MEDS: PHENOL 177 ML SPRAY BOTTLE MM PRN (21:28)
[2021-12-12] MEDS: NAPHAZOLINE/PHENIRAMINE OPHTHALMIC 15 ML BOTTLE OU SCH ×5 (05:54→21:35)
[2021-12-12] MEDS: PHENOL 177 ML SPRAY BOTTLE MM PRN ×2 (05:55→11:57)
[2021-12-12] MEDS: ALPRAZolam 1 MG TABLET PO SCH ×3 (05:55→21:35)
[2021-12-12] MEDS: INSULIN SLIDING SCALE (NOVOLOG) 1 VIAL SQ SCH ×4 (06:22→21:40)
[2021-12-12 07:36] LABS: BASO % 0.3 % (0-2.0); HEMATOCRIT 44.6 % (32.4-45.2); HEMOGLOBIN 14.6 GM/dL (10.7-15.3); LYMPH % 10.2 % (8-40); MCH 30.7 pg (25.7-33.7); MCHC 32.8 g/dl (32.0-36.0); MEAN CELL VOLUME 93.4 fl (80-96); MEAN PLT VOLUME 10.7 fl (7.5-11.1); MONO % 10.2 % (3.8-10.2); NEUT % 78.3 % (42.8-82.8); PLATELET COUNT 204 10^3/uL (134-434); RBC 4.77 M/mm3 (3.60-5.2); RDW 13.1 % (11.6-15.6); WHITE BLOOD COUNT 19.4 K/mm3 (4.0-10.0)
[2021-12-12 08:08] LABS: CALCIUM 9.1 mg/dL (8.5-10.1)
[2021-12-12 08:09] LABS: ALBUMIN 3.1 g/dl (3.4-5.0); BLOOD UREA NITROGEN 28.5 mg/dL (7-18)
[2021-12-12 08:12] LABS: CREATININE 0.7 mg/dL (0.55-1.3)
[2021-12-12 08:14] LABS: BILIRUBIN,TOTAL 0.8 mg/dL (0.2-1); TOT PROT 6.1 g/dl (6.4-8.2)
[2021-12-12] MEDS: DEXAMETHASONE SOD PHOSPHATE 10 MG/1 ML VIAL IVPUSH SCH (11:49)
[2021-12-12] MEDS: FAMOTIDINE 20 MG/50 ML IVPB 20 MG/50 ML MG IVPB SCH ×2 (11:49→21:35)
[2021-12-12] MEDS: SERTRALINE HCL 50 MG TABLET (FP) PO SCH (11:51)
[2021-12-12] MEDS: LOSARTAN POTASSIUM 50 MG TABLET PO SCH (11:51)
[2021-12-12] MEDS: APIXABAN 5 MG TABLET PO SCH ×2 (11:51→21:35)
[2021-12-12] MEDS: LACTOBACILLUS ACIDOPHILUS 1 TABLET PO SCH (11:51)
[2021-12-13] MEDS: NAPHAZOLINE/PHENIRAMINE OPHTHALMIC 15 ML BOTTLE OU SCH ×5 (05:38→21:26)
[2021-12-13] MEDS: ALPRAZolam 1 MG TABLET PO SCH ×3 (05:39→21:26)
[2021-12-13] MEDS: PHENOL 177 ML SPRAY BOTTLE MM PRN ×2 (05:39→21:38)
[2021-12-13] MEDS: INSULIN SLIDING SCALE (NOVOLOG) 1 VIAL SQ SCH ×4 (06:04→21:37)
[2021-12-13] MEDS: LACTOBACILLUS ACIDOPHILUS 1 TABLET PO SCH (09:52)
[2021-12-13] MEDS: LOSARTAN POTASSIUM 50 MG TABLET PO SCH (09:52)
[2021-12-13] MEDS: SERTRALINE HCL 50 MG TABLET (FP) PO SCH (09:52)
[2021-12-13] MEDS: APIXABAN 5 MG TABLET PO SCH ×2 (09:52→21:26)
[2021-12-13] MEDS: FAMOTIDINE 20 MG/50 ML IVPB 20 MG/50 ML MG IVPB SCH ×2 (09:53→21:26)
[2021-12-13] MEDS: DEXAMETHASONE SOD PHOSPHATE 10 MG/1 ML VIAL IVPUSH SCH (09:53)
[2021-12-13 10:30] LABS: ALBUMIN 3.2 g/dl (3.4-5.0); BLOOD UREA NITROGEN 28.5 mg/dL (7-18)
[2021-12-13 10:32] LABS: CALCIUM 9.1 mg/dL (8.5-10.1)
[2021-12-13 10:33] LABS: CREATININE 0.6 mg/dL (0.55-1.3)
[2021-12-13 10:34] LABS: BILIRUBIN,TOTAL 1.2 mg/dL (0.2-1); TOT PROT 6.2 g/dl (6.4-8.2)
[2021-12-13 11:00] LABS: BASO % 0.4 % (0-2.0); EOS % 0.7 % (0-4.5); HEMOGLOBIN 14.6 GM/dL (10.7-15.3); MCH 30.8 pg (25.7-33.7); MCHC 33.2 g/dl (32.0-36.0); MEAN CELL VOLUME 92.9 fl (80-96); MEAN PLT VOLUME 10.1 fl (7.5-11.1); MONO % 9.6 % (3.8-10.2); NEUT % 80.3 % (42.8-82.8); PLATELET COUNT 201 10^3/uL (134-434); RBC 4.74 M/mm3 (3.60-5.2); RDW 13.1 % (11.6-15.6); WHITE BLOOD COUNT 18.9 K/mm3 (4.0-10.0)
[2021-12-13] MEDS: AMINO ACIDS/PROTEIN HYDROLYS 30 ML LIQUID.PKT PO SCH (17:41)
[2021-12-14] MEDS: INSULIN SLIDING SCALE (NOVOLOG) 1 VIAL SQ SCH ×4 (06:48→21:07)
[2021-12-14] MEDS: ALPRAZolam 1 MG TABLET PO SCH ×3 (06:50→21:09)
[2021-12-14] MEDS: NAPHAZOLINE/PHENIRAMINE OPHTHALMIC 15 ML BOTTLE OU SCH ×5 (06:50→21:08)
[2021-12-14 08:15] LABS: RBC 4.75 M/mm3 (3.60-5.2); WHITE BLOOD COUNT 17.6 K/mm3 (4.0-10.0)
[2021-12-14 08:16] LABS: BASO % 0.6 % (0-2.0); EOS % 1.2 % (0-4.5); HEMATOCRIT 44.3 % (32.4-45.2); HEMOGLOBIN 14.4 GM/dL (10.7-15.3); LYMPH % 11.4 % (8-40); MCH 30.3 pg (25.7-33.7); MCHC 32.4 g/dl (32.0-36.0); MEAN CELL VOLUME 93.4 fl (80-96); MEAN PLT VOLUME 11.4 fl (7.5-11.1); MONO % 9.6 % (3.8-10.2); NEUT % 77.2 % (42.8-82.8); PLATELET COUNT 229 10^3/uL (134-434); RDW 13.1 % (11.6-15.6)
[2021-12-14 08:26] LABS: CHLORIDE 104 mmol/L (98-107)
[2021-12-14] MEDS: AMINO ACIDS/PROTEIN HYDROLYS 30 ML LIQUID.PKT PO SCH ×2 (08:42→17:52)
[2021-12-14 08:53] LABS: ALK PHOS 89 U/L (45-117); ANION GAP 6 MMOL/L (8-16); BILIRUBIN,TOTAL 0.9 mg/dL (0.2-1); BLOOD UREA NITROGEN 30.5 mg/dL (7-18); CALCIUM 9.2 mg/dL (8.5-10.1); CO2 31 mmol/L (21-32); CREATININE 0.7 mg/dL (0.55-1.3); GLUCOSE,RANDOM 184 mg/dL (74-106); SGOT/AST 29 U/L (15-37); SGPT/ALT 31 U/L (13-61); SODIUM 141 mmol/L (136-145); TOT PROT 5.9 g/dl (6.4-8.2)
[2021-12-14] MEDS: LACTOBACILLUS ACIDOPHILUS 1 TABLET PO SCH (09:02)
[2021-12-14] MEDS: DEXAMETHASONE SOD PHOSPHATE 10 MG/1 ML VIAL IVPUSH SCH (09:03)
[2021-12-14] MEDS: LOSARTAN POTASSIUM 50 MG TABLET PO SCH (09:03)
[2021-12-14] MEDS: APIXABAN 5 MG TABLET PO SCH ×2 (09:03→21:08)
[2021-12-14] MEDS: SERTRALINE HCL 50 MG TABLET (FP) PO SCH (09:03)
[2021-12-14] MEDS: FAMOTIDINE 20 MG/50 ML IVPB 20 MG/50 ML MG IVPB SCH ×2 (09:03→21:08)
[2021-12-15] MEDS: NAPHAZOLINE/PHENIRAMINE OPHTHALMIC 15 ML BOTTLE OU SCH ×5 (06:33→21:32)
[2021-12-15] MEDS: INSULIN SLIDING SCALE (NOVOLOG) 1 VIAL SQ SCH ×4 (06:33→21:29)
[2021-12-15] MEDS: ALPRAZolam 1 MG TABLET PO SCH ×3 (06:33→21:28)
[2021-12-15 08:15] LABS: BASO % 0.2 % (0-2.0); EOS % 1.2 % (0-4.5); HEMATOCRIT 43.8 % (32.4-45.2); HEMOGLOBIN 14.2 GM/dL (10.7-15.3); LYMPH % 14.7 % (8-40); MCH 30.4 pg (25.7-33.7); MCHC 32.4 g/dl (32.0-36.0); MEAN CELL VOLUME 93.9 fl (80-96); MEAN PLT VOLUME 11.4 fl (7.5-11.1); NEUT % 73.9 % (42.8-82.8); PLATELET COUNT 228 10^3/uL (134-434); RBC 4.67 M/mm3 (3.60-5.2); RDW 13.2 % (11.6-15.6); WHITE BLOOD COUNT 16.8 K/mm3 (4.0-10.0)
[2021-12-15 08:38] LABS: CALCIUM 8.9 mg/dL (8.5-10.1)
[2021-12-15 08:39] LABS: BLOOD UREA NITROGEN 32.7 mg/dL (7-18)
[2021-12-15 08:42] LABS: CREATININE 0.6 mg/dL (0.55-1.3)
[2021-12-15] MEDS: FAMOTIDINE 20 MG/50 ML IVPB 20 MG/50 ML MG IVPB SCH ×2 (09:18→21:29)
[2021-12-15] MEDS: DEXAMETHASONE SOD PHOSPHATE 10 MG/1 ML VIAL IVPUSH SCH (09:18)
[2021-12-15] MEDS: LACTOBACILLUS ACIDOPHILUS 1 TABLET PO SCH (09:18)
[2021-12-15] MEDS: LOSARTAN POTASSIUM 50 MG TABLET PO SCH (09:18)
[2021-12-15] MEDS: APIXABAN 5 MG TABLET PO SCH ×2 (09:18→21:28)
[2021-12-15] MEDS: SERTRALINE HCL 50 MG TABLET (FP) PO SCH (09:18)
[2021-12-15] MEDS: AMINO ACIDS/PROTEIN HYDROLYS 30 ML LIQUID.PKT PO SCH ×2 (09:19→17:16)
[2021-12-15] MEDS: ACETAMINOPHEN 325 MG TABLET (FP) PO PRN (14:50)
[2021-12-16] MEDS: NAPHAZOLINE/PHENIRAMINE OPHTHALMIC 15 ML BOTTLE OU SCH ×5 (06:17→21:15)
[2021-12-16] MEDS: ALPRAZolam 1 MG TABLET PO SCH ×2 (06:18→15:16)
[2021-12-16] MEDS: INSULIN SLIDING SCALE (NOVOLOG) 1 VIAL SQ SCH ×4 (06:18→21:15)
[2021-12-16 07:50] LABS: BASO % 0.5 % (0-2.0); HEMATOCRIT 45.8 % (32.4-45.2); HEMOGLOBIN 14.7 GM/dL (10.7-15.3); LYMPH % 15.1 % (8-40); MCH 30.4 pg (25.7-33.7); MCHC 32.2 g/dl (32.0-36.0); MEAN CELL VOLUME 94.4 fl (80-96); MEAN PLT VOLUME 11.6 fl (7.5-11.1); MONO % 9.7 % (3.8-10.2); NEUT % 73.7 % (42.8-82.8); PLATELET COUNT 234 10^3/uL (134-434); RBC 4.85 M/mm3 (3.60-5.2); RDW 13.3 % (11.6-15.6); WHITE BLOOD COUNT 16.8 K/mm3 (4.0-10.0)
[2021-12-16 08:16] LABS: BLOOD UREA NITROGEN 31.1 mg/dL (7-18); MAGNESIUM 2.3 mg/dL (1.8-2.4)
[2021-12-16 08:19] LABS: CREATININE 0.7 mg/dL (0.55-1.3); PHOSPHOROUS 3.4 mg/dL (2.5-4.9)
[2021-12-16] MEDS: FAMOTIDINE 20 MG/50 ML IVPB 20 MG/50 ML MG IVPB SCH ×2 (11:23→21:15)
[2021-12-16] MEDS: SERTRALINE HCL 50 MG TABLET (FP) PO SCH (11:24)
[2021-12-16] MEDS: LOSARTAN POTASSIUM 50 MG TABLET PO SCH (11:24)
[2021-12-16] MEDS: LACTOBACILLUS ACIDOPHILUS 1 TABLET PO SCH (11:24)
[2021-12-16] MEDS: APIXABAN 5 MG TABLET PO SCH ×2 (11:24→21:15)
[2021-12-16] MEDS: AMINO ACIDS/PROTEIN HYDROLYS 30 ML LIQUID.PKT PO SCH ×2 (11:25→17:26)
[2021-12-16] MEDS: DEXAMETHASONE SOD PHOSPHATE 10 MG/1 ML VIAL IVPUSH SCH (11:50)
[2021-12-16] MEDS ORDERED: ALPRAZolam 1 MG TABLET PO PRN (20:13)
[2021-12-17] MEDS: INSULIN SLIDING SCALE (NOVOLOG) 1 VIAL SQ SCH ×4 (06:42→22:11)
[2021-12-17] MEDS: NAPHAZOLINE/PHENIRAMINE OPHTHALMIC 15 ML BOTTLE OU SCH ×5 (06:42→21:54)
[2021-12-17] MEDS: SERTRALINE HCL 50 MG TABLET (FP) PO SCH (09:06)
[2021-12-17] MEDS: FAMOTIDINE 20 MG/50 ML IVPB 20 MG/50 ML MG IVPB SCH ×2 (09:06→21:54)
[2021-12-17] MEDS: LOSARTAN POTASSIUM 50 MG TABLET PO SCH (09:06)
[2021-12-17] MEDS: AMINO ACIDS/PROTEIN HYDROLYS 30 ML LIQUID.PKT PO SCH ×2 (09:06→16:56)
[2021-12-17] MEDS: DEXAMETHASONE SOD PHOSPHATE 10 MG/1 ML VIAL IVPUSH SCH (09:06)
[2021-12-17] MEDS: LACTOBACILLUS ACIDOPHILUS 1 TABLET PO SCH (09:06)
[2021-12-17] MEDS: APIXABAN 5 MG TABLET PO SCH ×2 (09:06→21:53)
[2021-12-17 09:19] LABS: BASO % 0.2 % (0-2.0); EOS % 1.4 % (0-4.5); HEMATOCRIT 45.3 % (32.4-45.2); HEMOGLOBIN 14.3 GM/dL (10.7-15.3); LYMPH % 16.6 % (8-40); MCH 29.7 pg (25.7-33.7); MCHC 31.5 g/dl (32.0-36.0); MEAN CELL VOLUME 94.3 fl (80-96); MEAN PLT VOLUME 11.9 fl (7.5-11.1); MONO % 8.4 % (3.8-10.2); NEUT % 73.4 % (42.8-82.8); PLATELET COUNT 208 10^3/uL (134-434); RBC 4.81 M/mm3 (3.60-5.2); WHITE BLOOD COUNT 16.1 K/mm3 (4.0-10.0)
[2021-12-17 09:36] LABS: CALCIUM 8.7 mg/dL (8.5-10.1)
[2021-12-17 09:37] LABS: BLOOD UREA NITROGEN 31.9 mg/dL (7-18)
[2021-12-17 09:39] LABS: CREATININE 0.6 mg/dL (0.55-1.3)
[2021-12-17] MEDS: ACETAMINOPHEN 325 MG TABLET (FP) PO PRN (21:53)
[2021-12-18] MEDS: NAPHAZOLINE/PHENIRAMINE OPHTHALMIC 15 ML BOTTLE OU SCH ×5 (06:17→21:46)
[2021-12-18] MEDS: INSULIN SLIDING SCALE (NOVOLOG) 1 VIAL SQ SCH ×4 (06:17→21:46)
[2021-12-18 07:43] LABS: BASO % 0.3 % (0-2.0); EOS % 1.4 % (0-4.5); HEMATOCRIT 44.6 % (32.4-45.2); HEMOGLOBIN 14.5 GM/dL (10.7-15.3); LYMPH % 20.2 % (8-40); MCH 30.5 pg (25.7-33.7); MCHC 32.5 g/dl (32.0-36.0); MEAN PLT VOLUME 11.9 fl (7.5-11.1); MONO % 10.5 % (3.8-10.2); NEUT % 67.6 % (42.8-82.8); PLATELET COUNT 204 10^3/uL (134-434); RBC 4.75 M/mm3 (3.60-5.2); RDW 13.2 % (11.6-15.6); WHITE BLOOD COUNT 14.9 K/mm3 (4.0-10.0)
[2021-12-18 07:59] LABS: CALCIUM 8.6 mg/dL (8.5-10.1)
[2021-12-18 08:00] LABS: BLOOD UREA NITROGEN 32.3 mg/dL (7-18)
[2021-12-18 08:03] LABS: CREATININE 0.8 mg/dL (0.55-1.3)
[2021-12-18] MEDS: APIXABAN 5 MG TABLET PO SCH ×2 (09:01→21:41)
[2021-12-18] MEDS: LOSARTAN POTASSIUM 50 MG TABLET PO SCH (09:01)
[2021-12-18] MEDS: SERTRALINE HCL 50 MG TABLET (FP) PO SCH (09:01)
[2021-12-18] MEDS: DEXAMETHASONE SOD PHOSPHATE 10 MG/1 ML VIAL IVPUSH SCH (09:02)
[2021-12-18] MEDS: AMINO ACIDS/PROTEIN HYDROLYS 30 ML LIQUID.PKT PO SCH ×2 (09:02→17:18)
[2021-12-18] MEDS: FAMOTIDINE 20 MG/50 ML IVPB 20 MG/50 ML MG IVPB SCH ×2 (09:02→21:36)
[2021-12-18] MEDS: LACTOBACILLUS ACIDOPHILUS 1 TABLET PO SCH (09:02)
[2021-12-18] MEDS: DOCUSATE SODIUM 100 MG CAPSULE (FP) PO SCH ×2 (13:20→21:41)
[2021-12-19] MEDS: NAPHAZOLINE/PHENIRAMINE OPHTHALMIC 15 ML BOTTLE OU SCH ×5 (06:14→22:10)
[2021-12-19] MEDS: INSULIN SLIDING SCALE (NOVOLOG) 1 VIAL SQ SCH ×4 (06:14→22:02)
[2021-12-19] MEDS: DOCUSATE SODIUM 100 MG CAPSULE (FP) PO SCH (06:14)
[2021-12-19 08:04] LABS: BASO % 0.2 % (0-2.0); EOS % 0.8 % (0-4.5); LYMPH % 19.6 % (8-40); MCH 30.8 pg (25.7-33.7); MCHC 32.6 g/dl (32.0-36.0); MEAN CELL VOLUME 94.5 fl (80-96); MEAN PLT VOLUME 11.8 fl (7.5-11.1); MONO % 9.7 % (3.8-10.2); NEUT % 69.7 % (42.8-82.8); PLATELET COUNT 204 10^3/uL (134-434); RBC 4.87 M/mm3 (3.60-5.2); RDW 13.1 % (11.6-15.6); WHITE BLOOD COUNT 14.5 K/mm3 (4.0-10.0)
[2021-12-19] MEDS: FAMOTIDINE 20 MG/50 ML IVPB 20 MG/50 ML MG IVPB SCH ×2 (10:24→22:02)
[2021-12-19] MEDS: DEXAMETHASONE SOD PHOSPHATE 10 MG/1 ML VIAL IVPUSH SCH (10:25)
[2021-12-19] MEDS: APIXABAN 5 MG TABLET PO SCH ×2 (10:25→22:01)
[2021-12-19] MEDS: AMINO ACIDS/PROTEIN HYDROLYS 30 ML LIQUID.PKT PO SCH ×2 (10:25→16:47)
[2021-12-19] MEDS: LOSARTAN POTASSIUM 50 MG TABLET PO SCH (10:25)
[2021-12-19] MEDS: SERTRALINE HCL 50 MG TABLET (FP) PO SCH (10:25)
[2021-12-19] MEDS: LACTOBACILLUS ACIDOPHILUS 1 TABLET PO SCH (10:25)
[2021-12-19] MEDS: ACETAMINOPHEN 325 MG TABLET (FP) PO PRN (15:07)
[2021-12-20] MEDS: NAPHAZOLINE/PHENIRAMINE OPHTHALMIC 15 ML BOTTLE OU SCH ×5 (06:21→21:43)
[2021-12-20] MEDS: INSULIN SLIDING SCALE (NOVOLOG) 1 VIAL SQ SCH ×4 (06:21→21:42)
[2021-12-20] MEDS: AMINO ACIDS/PROTEIN HYDROLYS 30 ML LIQUID.PKT PO SCH ×2 (08:46→17:34)
[2021-12-20] MEDS: ALPRAZolam 0.25 MG TABLET PO PRN ×2 (08:59→21:10)
[2021-12-20] MEDS: LOSARTAN POTASSIUM 50 MG TABLET PO SCH (09:00)
[2021-12-20] MEDS: APIXABAN 5 MG TABLET PO SCH ×2 (09:00→21:42)
[2021-12-20] MEDS: LACTOBACILLUS ACIDOPHILUS 1 TABLET PO SCH (09:00)
[2021-12-20] MEDS: DEXAMETHASONE SOD PHOSPHATE 10 MG/1 ML VIAL IVPUSH SCH (09:00)
[2021-12-20] MEDS: FAMOTIDINE 20 MG/50 ML IVPB 20 MG/50 ML MG IVPB SCH ×2 (09:01→21:43)
[2021-12-20] MEDS: SERTRALINE HCL 50 MG TABLET (FP) PO SCH (09:01)
[2021-12-20] MEDS ORDERED: guaiFENesin/D-METHORPHAN HB 10 ML UNIT-DOSE CUPS PO PRN (17:39)
[2021-12-20] MEDS ORDERED: guaiFENesin/D-M SUGAR-FREE/ACLHOL-FREE 5 ML UNIT DOSE PO PRN (17:40)
[2021-12-21] MEDS: NAPHAZOLINE/PHENIRAMINE OPHTHALMIC 15 ML BOTTLE OU SCH ×3 (05:37→13:13)
[2021-12-21] MEDS: INSULIN SLIDING SCALE (NOVOLOG) 1 VIAL SQ SCH ×2 (06:32→11:19)
[2021-12-21 07:37] LABS: BASO % 0.2 % (0-2.0); EOS % 0.8 % (0-4.5); HEMATOCRIT 44.5 % (32.4-45.2); HEMOGLOBIN 14.4 GM/dL (10.7-15.3); LYMPH % 20.3 % (8-40); MCH 30.5 pg (25.7-33.7); MCHC 32.3 g/dl (32.0-36.0); MEAN CELL VOLUME 94.3 fl (80-96); MONO % 10.3 % (3.8-10.2); NEUT % 68.4 % (42.8-82.8); PLATELET COUNT 178 10^3/uL (134-434); RBC 4.72 M/mm3 (3.60-5.2); RDW 13.3 % (11.6-15.6); WHITE BLOOD COUNT 13.4 K/mm3 (4.0-10.0)
[2021-12-21 08:04] LABS: CALCIUM 8.7 mg/dL (8.5-10.1)
[2021-12-21 08:07] LABS: CREATININE 0.7 mg/dL (0.55-1.3)
[2021-12-21] MEDS ORDERED: ONDANSETRON 4 MG/2 ML VIAL IVPUSH ONE (09:15)
[2021-12-21] MEDS: AMINO ACIDS/PROTEIN HYDROLYS 30 ML LIQUID.PKT PO SCH (09:31)
[2021-12-21] MEDS: APIXABAN 5 MG TABLET PO SCH (09:32)
[2021-12-21] MEDS: LACTOBACILLUS ACIDOPHILUS 1 TABLET PO SCH (09:32)
[2021-12-21] MEDS: LOSARTAN POTASSIUM 50 MG TABLET PO SCH (09:32)
[2021-12-21] MEDS: SERTRALINE HCL 50 MG TABLET (FP) PO SCH (09:32)
[2021-12-21] MEDS: ALPRAZolam 0.25 MG TABLET PO PRN (09:32)
[2021-12-21] MEDS: DEXAMETHASONE SOD PHOSPHATE 10 MG/1 ML VIAL IVPUSH SCH (09:33)
[2021-12-21] MEDS: FAMOTIDINE 20 MG/50 ML IVPB 20 MG/50 ML MG IVPB SCH (09:33)
[2021-12-21 13:58] VITALS: BP 126/58; PULSE 59; TEMP 98.7
== END 2021-12-21 16:36 | DRG 177 ==
LOC: JER 10:37 → JERBED 14:52 → JICU 17:31 → J4S 12-08 15:09
PROVIDERS: ADMIT Internal Medicine Pulmonary Disease
PROC: XW033H5 Introduction of Tocilizumab into Peripheral Vein, Percutaneous Approach, New Technology Group 5 (ICD-10-PCS; principal; 2021-12-01)
PROC: XW033E5 Introduction of Remdesivir Anti-infective into Peripheral Vein, Percutaneous Approach, New Technology Group 5 (ICD-10-PCS; 2021-12-01)
DX: U07.1 COVID-19 (principal); J12.82 Pneumonia due to coronavirus disease 2019; J96.01 Acute respiratory failure with hypoxia; I50.32 Chronic diastolic (congestive) heart failure; N39.0 Urinary tract infection, site not specified; I11.0 Hypertensive heart disease with heart failure; E66.9 Obesity, unspecified; Z68.34 Body mass index [BMI] 34.0-34.9, adult; E11.9 Type 2 diabetes mellitus without complications; Z79.4 Long term (current) use of insulin; E78.5 Hyperlipidemia, unspecified; I48.0 Paroxysmal atrial fibrillation; I25.119 Atherosclerotic heart disease of native coronary artery with unspecified angina pectoris; F41.8 Other specified anxiety disorders; Z98.61 Coronary angioplasty status; K21.9 Gastro-esophageal reflux disease without esophagitis
CPT/HCPCS: 36415; 36600; 71045-TC-FY; 80048; 80053; 81003; 82248; 82550; 82553; 82728; 82803; 82962; 83605; 83615; 83735; 83880; 84100; 84484; 85025; 85027; 85379; 85610; 85651; 85730; 86140; 86480; 86704; 87040; 87086; 87186; 87340; 87517; 87522; 87804; 87807; 93005; 93010; 93971-TC; 94660; 97116-GP; 97161-GP; 99291; C9399; C9803; J1100; J3262; U0003; U0005

== ENCOUNTER 2023-06-02 12:51 | Emergency (ER) | payer OTHER ==
[2023-06-02 13:01] VITALS: BP 158/80; PULSE 103; RESP 16; TEMP 98.7; BMI 34.9
[2023-06-02 14:35] LABS: BASO % 0.4 % (0-2.0); EOS % 0.2 % (0-4.5); HEMATOCRIT 48.4 % (32.4-45.2); HEMOGLOBIN 15.7 GM/dL (10.7-15.3); LYMPH % 22.8 % (8-40); MCH 30.5 pg (25.7-33.7); MCHC 32.5 g/dl (32.0-36.0); MEAN CELL VOLUME 93.9 fl (80-96); MONO % 7.9 % (3.8-10.2); NEUT % 68.7 % (42.8-82.8); PLATELET COUNT 261 10^3/uL (134-434); RBC 5.15 M/mm3 (3.60-5.2); RDW 13.4 % (11.6-15.6); WHITE BLOOD COUNT 11.6 K/mm3 (4.0-10.0)
[2023-06-02 14:42] LABS: INR 1.22 (0.83-1.09); PROTHROMBIN TIME (PATIENT) 14.1 SEC (9.7-13.0)
[2023-06-02 14:44] LABS: VENOUS BASE EXCESS 1.4 mmol/L (-2-2); VENOUS PCO2 49.3 mmHg (38-52); VENOUS PH 7.368 (7.310-7.410)
[2023-06-02 14:45] LABS: ACTIVATED PTT 30.7 SECONDS (25.2-36.5)
[2023-06-02 14:57] LABS: POTASSIUM 4.3 mmol/L (3.5-5.1)
[2023-06-02 14:59] LABS: CALCIUM 9.8 mg/dL (8.5-10.1)
[2023-06-02 15:00] LABS: ALBUMIN 3.7 g/dl (3.4-5.0); BLOOD UREA NITROGEN 28.2 mg/dL (7-18)
[2023-06-02 15:05] LABS: BILIRUBIN,TOTAL 0.4 mg/dL (0.2-1); TOT PROT 7.3 g/dl (6.4-8.2)
[2023-06-02 15:08] LABS: N-TERMINAL BNP 312.3 pg/ml (5-450)
== END 2023-06-02 15:26 | disposition home or self-care (01) ==
LOC: JER 12:51
DX: R06.02 Shortness of breath (principal); F41.9 Anxiety disorder, unspecified; Z20.822 Contact with and (suspected) exposure to COVID-19
CPT/HCPCS: 0241U-QW; 36415; 71045-TC-FY; 80053; 82803; 82962; 83880; 84484; 85025; 85610; 85730; 93005; 93010; 99285-25